=== PATIENT | female | born 1965 | race Caucasian/White ===

== ENCOUNTER 2020-07-01 11:16 | Outpatient (REF) | payer MEDICAID, SELFPAY ==
--- NOTE | ~2020-07-01 | US_ITS ---
EXAMINATION: PELVIC ULTRASOUND CLINICAL INFORMATION: Abnormal vaginal bleeding COMPARISON: None TECHNIQUE: Transabdominal and transvaginal pelvic ultrasound. Transvaginal exam was performed for better visualization of the uterus and ovaries. FINDINGS: The uterus is anteverted and measures 10.6 x 5 x 6.6 cm in dimension. No focal uterine lesion is seen. Endometrial thickness measures 7 mm. There is a small amount of fluid seen in the endometrial cavity. There are nabothian cysts in the cervix. The right ovary is normal-appearing and measures 0.8 x 1.6 x 1.4 cm. The left ovary measures 3.8 x 1.3 x 2.5 cm and contains a 1.4 x 1.2 x 1.7 cm simple cyst. There is no fluid in the pelvis. US/US transvaginal IMPRESSION: Endometrial thickness measures 7 mm which is slightly thickened in a postmenopausal patient and there is a small amount of fluid in the endometrial cavity. Small 1.4 x 1.2 x 1.7 cm simple left ovarian cyst.
--- NOTE | ~2020-07-01 | US_ITS ---
EXAMINATION: PELVIC ULTRASOUND CLINICAL INFORMATION: Abnormal vaginal bleeding COMPARISON: None TECHNIQUE: Transabdominal and transvaginal pelvic ultrasound. Transvaginal exam was performed for better visualization of the uterus and ovaries. FINDINGS: The uterus is anteverted and measures 10.6 x 5 x 6.6 cm in dimension. No focal uterine lesion is seen. Endometrial thickness measures 7 mm. There is a small amount of fluid seen in the endometrial cavity. There are nabothian cysts in the cervix. The right ovary is normal-appearing and measures 0.8 x 1.6 x 1.4 cm. The left ovary measures 3.8 x 1.3 x 2.5 cm and contains a 1.4 x 1.2 x 1.7 cm simple cyst. There is no fluid in the pelvis. US/US pelvic complete IMPRESSION: Endometrial thickness measures 7 mm which is slightly thickened in a postmenopausal patient and there is a small amount of fluid in the endometrial cavity. Small 1.4 x 1.2 x 1.7 cm simple left ovarian cyst.
== END 2020-07-01 11:17 | disposition home or self-care (01) ==
LOC: HO.US 11:16
PROVIDERS: PCP Internal Medicine; Visit Provider Internal Medicine
DX: N93.8 Other specified abnormal uterine and vaginal bleeding (principal)
CPT/HCPCS: 76830; 76856

== ENCOUNTER 2020-09-03 10:37 | Outpatient (REF) | payer MEDICAID, SELFPAY ==
--- NOTE | ~2020-09-03 | MM_ITS ---
EXAMINATION: MM SCREENING DIGITAL BREAST TOMOSYNTHESIS, BILATERAL CLINICAL INFORMATION: Screening. Asymptomatic. The lifetime risk of breast cancer based on the Tyrer-Cuzick Model is 6%. COMPARISON: Mammography: 09/21/2018, 09/11/2017, 05/09/2016 TECHNIQUE: Digital breast tomosynthesis is performed in both the craniocaudal and mediolateral oblique views along with computer-aided detection (CAD). Synthesized 2D images are generated from the tomosynthesis. Additional left MLO view is provided. FINDINGS: There are scattered areas of fibroglandular density (ACR BI-RADS breast composition Category b). There are no significant masses, abnormal calcifications, or other abnormalities. Parenchymal pattern is similar to prior studies. The skin contours are smooth. No significant changes. MM/MM tomosynthesis screening BI IMPRESSION: No mammographic evidence of malignancy. ASSESSMENT: BI-RADS 1: Negative RECOMMENDATION: Routine annual mammography screening. This patient's information was entered into a reminder system with a target due date for their next mammogram.
== END 2020-09-03 10:38 | disposition home or self-care (01) ==
LOC: HO.MAMMO 10:37
PROVIDERS: PCP Internal Medicine; Visit Provider Internal Medicine
DX: Z12.31 Encounter for screening mammogram for malignant neoplasm of breast (principal)
CPT/HCPCS: 77063; 77067

== ENCOUNTER 2020-10-05 14:15 | Emergency (ER) | payer MEDICAID, SELFPAY ==
--- NOTE | ~2020-10-05 | XR_ITS ---
EXAMINATION: PORTABLE CHEST 1 VIEW CLINICAL INFORMATION: Fever, chest pain, rule out pneumonia . COMPARISON: 10/14/2019. TECHNIQUE: Portable frontal view of the chest was obtained. FINDINGS: The lungs are hypoexpanded. Minimal increased basilar markings more likely reflect component of atelectasis with this degree of hypoexpansion. No superimposed focal infiltrate, effusion, edema, or pneumothorax. Cardiac and mediastinal silhouettes are within normal limits for technique. No acute bony abnormality seen. XR/XR chest 1V IMPRESSION: Hypoexpanded with basilar markings more likely due to atelectasis but no superimposed evidence of acute disease.
--- NOTE | ~2020-10-05 | CT_ITS ---
EXAMINATION: CT HEAD WITHOUT CONTRAST CLINICAL INFORMATION: New headaches. COMPARISON: MRI from 07/22/2015. TECHNIQUE: Contiguous axial imaging was performed from the skull base to vertex without intravenous administration of contrast. This CT examination was performed using dose optimization techniques as appropriate, variously including the following: *Automated exposure control *Adjustment of mA and/or kV according to patient size (this includes techniques or standardized protocols for targeted exams where dose is matched to indication/reason for exam; i.e. extremities or head) *Use of iterative reconstruction technique DLP: 807 mGy-cm FINDINGS: There is no evidence of acute intracranial hemorrhage or territorial infarction. No abnormal mass effect or midline shift is seen. Ramírez to white matter differentiation is well preserved. No extra-axial fluid collections are identified. The ventricles are normal in size. Nonspecific mild foci of low-density change noted in the cerebral white matter, likely corresponding to areas of T2 hyperintense signal change on the prior MRI exam. The osseous structures and soft tissues are normal. The mastoid air cells and visualized portions of the paranasal sinuses are well aerated. CT/CT head/brain wo con IMPRESSION: No acute intracranial hemorrhage or territorial infarction.
[2020-10-05 14:46] VITALS: BP 180/102; PULSE 96; RESP 18; TEMP 37.2; O2SAT 97; BMI 31.2
[2020-10-05 15:42] VITALS: BP 153/82; PULSE 93; RESP 18; TEMP 37; O2SAT 97
--- NOTE | 2020-10-05 16:51 | ED_ITS ---
HPI - General Adult General Chief complaint: General Medical Stated complaint: ear pain, fever, headache Time Seen by Provider: 10/05/20 15:47 Source: patient and other (Lala, patient's friend) Mode of arrival: ambulatory Limitations: no limitations History of Present Illness HPI narrative: 55-year-old female who presents emergency department for evaluation of headache, fever, your pain, nausea and weakness. Patient states she has been sick since Monday, 5 days prior to evaluation. The patient states that the headache came on gradually and is intermittent, she points to the front of her head when asked to localize the pain, she describes as a burning pain. She states that the pain is 5/10. She states that she has subjective fever and shaking chills x5 days. She has had associated nausea with no vomiting. She denies cough, chest pain, abdominal pain, shortness of breath, frequency, urgency, dysuria, diarrhea or rash. She has not had any recent tick bites. The patient had her 1st COVID-19 vaccination on 09/25/2020 (10 days prior to evaluation). Related Data Allergies Allergy/AdvReac Type Severity Reaction Status Date / Time No Known Allergies Allergy Verified 10/05/20 14:46 [No Known Allergies*] Review of Systems Review of Systems: Yes all other systems are reviewed and are negative [facility] Past Medical History [facility] Narrative: Past medical history significant for hyperlipidemia, coronary artery disease with OK in the past, stroke x9 according to the patient. She denies tobacco, alcohol and drug use. Medical History (Updated 10/05/20 @ 14:54 by Mihaela Dominguez) Stroke Social History Social History Alcohol intake: never Smoking Status: Never smoker Use of substances other than those prescribed or required for medical reasons: No Advance Directives: No Advance Directives Information Provided: Yes Physical Exam Vital Signs: Vital Signs: Last Vital Signs Temp 98.8 F 10/05/20 19:05 Pulse 102 H 10/05/20 19:05 Resp 18 10/05/20 19:05 BP 179/92 H 10/05/20 19:05 Pulse Ox 97 10/05/20 19:05 Body Mass Index 31.2 Const: General: cooperative Orientation/consciousness: oriented to person and oriented to place Limitations: no limitations HENMT: Head: Yes normal to inspection, Yes normocephalic, Yes atraumatic and Yes other (Tender right temporal region) Ears: external ears normal General nose exam: Normal external nose present Face and sinus: Yes normal facial exam Mouth: Normal oral and palatal mucosa present Throat: Yes posterior oropharynx normal Eyes: Periorbital: periorbital findings normal Eyelids: Yes eyelids normal Conjunctivae: conjunctivae normal Sclerae: sclerae normal Corneas: corneas normal Pupils: Equal, round and reactive pupils present Direct Ophthalmoscopy: normal light reflex Neck: Neck: Yes full ROM, Yes no lymphadenopathy, Yes no meningeal signs, Yes trachea midline and Yes supple Chest: Chest palpation & inspection: normal inspection of the chest and normal palpation of entire chest wall Resp: Effort & Inspection: normal respiratory effort and able to speak in complete sentences Auscultation: clear to auscultation bilaterally Cardio: Rate: regular rate Rhythm: regular rhythm Heart sounds: S1 normal heart sound present, S2 normal heart sound present and no murmurs GI: Inspection: Yes normal to inspection Palpation (GI): Soft to palpation, nontender, no guarding, not rigid and No hepatosplenomegaly present : General: Yes no CVA tenderness Back/Spine/Pelvis: Back: no CVA tenderness Cervical Spine: normal cervical lordosis Thoracic/Lumbar Spine: thoracic and lumbar spine normal to inspection Skin: Lesions: no lesions Rashes: no rashes Wounds: no wounds Neuro: General: oriented to person, oriented to place and no meningeal signs Cranial nerves: Yes CN's II-XII intact bilaterally and Yes Equal, round and reactive pupils present Cognition (Neuro): normal cognition Motor exam (neuro): 5/5 motor strength present throughout Extrem: General: Yes normal to inspection and Yes full ROM Psych: Appearance: well kempt Mental Status: mental status grossly normal Speech and movement: Normal speech and movement present Affect: normal affe ct Attitude: cooperative Thought process: Normal thought process present Thought content: Normal thought content present Course Course Course Narrative: 55-year-old female who presents emergency department for evaluation of fever, chills, headache, x5 days. Vital signs revealed a low- grade temperature of 99.0? orally, she was hypertensive with a blood pressure of 180/102, she had a normal respiratory rate, pulse and O2 saturation. The patient's examination did reveal right-sided temporal tenderness otherwise was unremarkable. I did order a CBC, CMP, sedimentation rate, COVID-19 test, chest x-ray and CT scan of the brain. She was ordered to get normal saline IV x1 L. her headache and nausea was treated with Reglan 10 mg IV, Benadryl 50 mg IV and Toradol 30 mg IV. 1924: The patient did get some improvement with the above medical treatment. The laboratory evaluation was unremarkable except for slight elevation of glucose of 130. The patient's COVID-19 test was negative. Patient's chest x-ray revealed no acute pneumonia, she may have atelectasis at the bases. I did discuss these findings with the patient. I did tell her it is possible that she may have a false negative COVID-19. The patient most likely has an acute viral syndrome and she was given verbal and printed instructions. She was advised to take ibuprofen and Tylenol for pain. She was advised to follow the COVID-19 instructions. Medical Decision Making Lab Data Result diagrams: 10/05/20 17:50 10/05/20 17:50 Labs: Lab Results 10/05/20 10/05/20 10/05/20 Range/Units 17:32 17:50 17:50 WBC 7.7 (4.8-10.8) X10*3/uL RBC 4.54 (4.20-5.50) X10*6/uL Hgb 13.4 (12.0-16.0) g/dl Hct 38.6 (37-47) % MCV 85.0 (80-98) fL MCH 29.5 (27.0-33.0) pg MCHC 34.7 (31.0-35.0) g/dl RDW 12.3 (11.0-16.0) % Plt Count 254 (160-400) X10*3/uL MPV 9.8 (9.4-12.3) fL Immature Gran % (Auto) 0.3 (0.0-0.4) % Neut % (Auto) 83.2 H (45-73) % Lymph % (Auto) 12.1 L (20-40) % [place] % (Auto) 3.9 (2-11) % Eos % (Auto) 0.1 (0-4) % Baso % (Auto) 0.4 (0-2) % Lymph # (Auto) 0.9 L (1.2-4.9) X10*3/uL [place] # (Auto) 0.3 (0.1-1.2) X10*3/uL Eos # (Auto) 0.0 (0.0-0.4) X10*3/uL Baso # (Auto) 0.0 (0.0-0.2) X10*3/uL Abs Immat Gran (auto) 0.02 (0.00-0.03) X10*3/uL Absolute Neuts (auto) 6.4 (2.0-8.3) X10*3/uL Absolute Nucleated RBC 0.000 (0.0-0.012) X10*3/uL Nucleated RBC % (auto) 0.0 (0.0-0.2) /100WBC ESR 7 (0-20) MM/HR PT (10.8-13.0) SEC INR (0.9-1.1) APTT (24.1-38.0) SEC Sodium (135-145) mmol/L Potassium (3.3-5.1) mmol/L Chloride (96-108) mmol/L Carbon Dioxide (22-29) mmol/L Anion Gap (12-20) BUN (9-16) mg/dL Creatinine (0.5-1.4) mg/dL Estim Creat Clear Calc Estimated GFR Random Glucose (60-115) mg/dL Lactic Acid (0.5-2.0) mmol/L Calcium (8.4-10.2) mg/dL Total Bilirubin (0.0-1.0) mg/dL AST (5-31) U/L ALT (0-31) U/L Alkaline Phosphatase (39-117) U/L Total Protein (6.5-8.0) g/dL Albumin (3.5-5.0) g/dL Lipase (8-78) U/L Urine Color YELLOW Urine Appearance CLEAR Urine pH 6.0 (5.0-8.0) Ur Specific [place] >= 1.030 H (1.005-1.025) Urine Protein NEG (NEG-TRACE) MG/DL Urine Glucose (UA) NEG (NEG) MG/DL Urine Ketones NEG (NEG) MG/DL Urine Blood NEG (NEG) Urine Nitrite NEG (NEG) Ur Leukocyte Esterase NEG (NEG) COVID-19 (SARITA) (Negative) COVID-19 Clin Com 10/05/20 10/05/20 10/05/20 Range/Units 17:50 17:50 17:50 WBC (4.8-10.8) X10*3/uL RBC (4.20-5.50) X10*6/uL Hgb (12.0-16.0) g/dl Hct (37-47) % MCV (80-98) fL MCH (27.0-33.0) pg MCHC (31.0-35.0) g/dl RDW (11.0-16.0) % Plt Count (160-400) X10*3/uL MPV (9.4-12.3) fL Immature Gran % (Auto) (0.0-0.4) % Neut % (Auto) (45-73) % Lymph % (Auto) (20-40) % [place] % (Auto) (2-11) % Eos % (Auto) (0-4) % Baso % (Auto) (0-2) % Lymph # (Auto) (1.2-4.9) X10*3/uL [place] # (Auto) (0.1-1.2) X10*3/uL Eos # (Auto) (0.0-0.4) X10*3/uL Baso # (Auto) (0.0-0.2) X10*3/uL Abs Immat Gran (auto) (0.00-0.03) X10*3/uL Absolute Neuts (auto) (2.0-8.3) X10*3/uL Absolute Nucleated RBC (0.0-0.012) X10*3/uL Nucleated RBC % (auto) (0.0-0.2) /100WBC ESR (0-20) MM/HR PT 12.6 (10.8-13.0) SEC INR 1.1 (0.9-1.1) APTT 26.9 (24.1-38.0) SEC Sodium 138 (135-145) mmol/L Potassium 4.0 (3.3-5.1) mmol/L Chloride 104 (96-108) mmol/L Carbon Dioxide 26 (22-29) mmol/L Anion Gap 12 (12-20) BUN 8 L (9-16) mg/dL Creatinine 0.71 (0.5-1.4) mg/dL Estim Creat Clear Calc 80.5 Estimated GFR > 60 Random Glucose 130 H (60-115) mg/dL Lactic Acid 1.6 (0.5-2.0) mmol/L Calcium 9.5 (8.4-10.2) mg/dL Total Bilirubin 0.5 (0.0-1.0) mg/dL AST 15 (5-31) U/L ALT 22 (0-31) U/L Alkaline Phosphatase 77 (39-117) U/L Total Protein 7.1 (6.5-8.0) g/dL Albumin 4.4 (3.5-5.0) g/dL Lipase (8-78) U/L Urine Color Urine Appearance Urine pH (5.0-8.0) Ur Specific [place] (1.005-1.025) Urine Protein (NEG-TRACE) MG/DL Urine Glucose (UA) (NEG) MG/DL Urine Ketones (NEG) MG/DL Urine Blood (NEG) Urine Nitrite (NEG) Ur Leukocyte Esterase (NEG) COVID-19 ([facility]ARITA) (Negative) COVID-19 Clin Com 10/05/20 10/05/20 Range/Units 17:50 17:52 WBC (4.8-10.8) X10*3/uL RBC (4.20-5.50) X10*6/uL Hgb (12.0-16.0) g/dl Hct (37-47) % MCV (80-98) fL MCH (27.0-33.0) pg MCHC (31.0-35.0) g/dl RDW (11.0-16.0) % Plt Count (160-400) X10*3/uL MPV (9.4-12.3) fL Immature Gran % (Auto) (0.0-0.4) % Neut % (Auto) (45-73) % Lymph % (Auto) (20-40) % [place] % (Auto) (2-11) % Eos % (Auto) (0-4) % Baso % (Auto) (0-2) % Lymph # (Auto) (1.2-4.9) X10*3/uL [place] # (Auto) (0.1-1.2) X10*3/uL Eos # (Auto) (0.0-0.4) X10*3/uL Baso # (Auto) (0.0-0.2) X10*3/uL Abs Immat Gran (auto) (0.00-0.03) X10*3/uL Absolute Neuts (auto) (2.0-8.3) X10*3/uL Absolute Nucleated RBC (0.0-0.012) X10*3/uL Nucleated RBC % (auto) (0.0-0.2) /100WBC ESR (0-20) MM/HR PT (10.8-13.0) SEC INR (0.9-1.1) APTT (24.1-38.0) SEC Sodium (135-145) mmol/L Potassium (3.3-5.1) mmol/L Chloride (96-108) mmol/L Carbon Dioxide (22-29) mmol/L Anion Gap (12-20) BUN (9-16) mg/dL Creatinine (0.5-1.4) mg/dL Estim Creat Clear Calc Estimated GFR Random Glucose (60-115) mg/dL Lactic Acid (0.5-2.0) mmol/L Calcium (8.4-10.2) mg/dL Total Bilirubin (0.0-1.0) mg/dL AST (5-31) U/L ALT (0-31) U/L Alkaline Phosphatase (39-117) U/L Total Protein (6.5-8.0) g/dL Albumin (3.5-5.0) g/dL Lipase 20 (8-78) U/L Urine Color Urine Appearance Urine pH (5.0-8.0) Ur Specific [place] (1.005-1.025) Urine Protein (NEG-TRACE) MG/DL Urine Glucose (UA) (NEG) MG/DL Urine Ketones (NEG) MG/DL Urine Blood (NEG) Urine Nitrite (NEG) Ur Leukocyte Esterase (NEG) COVID-19 (SARIAT) Negative (Negative) COVID-19 Clin Com See Note
[2020-10-05 18:00] VITALS: BP 179/89; PULSE 103; RESP 18; O2SAT 97
[2020-10-05 18:00] LABS: MANUAL DIFF FLAG NO
[2020-10-05] MEDS: 0.9 % Sodium Chloride 1,000 ML 999 ML IV (18:01)
[2020-10-05] MEDS: diphenhydrAMINE HCL 50 MG/ML VIAL IVPUSH (18:01)
[2020-10-05 18:02] LABS: Basophils Percent Auto 0.4 % (0-2); Eosinophils Percent Auto 0.1 % (0-4); Hematocrit 38.6 % (37-47); Hemoglobin 13.4 g/dl (12.0-16.0); Imm Gran Abs Auto 0.02 X10*3/uL (0.00-0.03); Imm Gran Pct Auto 0.3 % (0.0-0.4); Lymphocytes Absolute Auto 0.9 X10*3/uL (1.2-4.9); Lymphocytes Percent Auto 12.1 % (20-40); Mean Corpuscular HGB Conc 34.7 g/dl (31.0-35.0); Mean Corpuscular Hemoglobin 29.5 pg (27.0-33.0); Mean Platelet Volume 9.8 fL (9.4-12.3); Monocytes Absolute Auto 0.3 X10*3/uL (0.1-1.2); Monocytes Percent Auto 3.9 % (2-11); Neutrophils Absolute Auto 6.4 X10*3/uL (2.0-8.3); Neutrophils Percent Auto 83.2 % (45-73); Platelet Count 254 X10*3/uL (160-400); Red Blood Count 4.54 X10*6/uL (4.20-5.50); Red Cell Distribution Width 12.3 % (11.0-16.0); White Blood Count 7.7 X10*3/uL (4.8-10.8)
[2020-10-05] MEDS: Metoclopramide HCl 10 MG/2 ML VIAL IVPUSH (18:03)
[2020-10-05] MEDS: Ketorolac Tromethamine 30 MG/ML VIAL IVPUSH (18:05)
--- NOTE | 2020-10-05 18:05 | PC.NURSE ---
Pt medicated for headache. IVF running. Labd obtained. 22 to right wrist
[2020-10-05 18:07] LABS: Glucose Urine UA NEG (NEG); Leukocyte Esterase Urine NEG (NEG); Nitrite Urine NEG (NEG); Specific Gravity - Urine >= 1.030 (1.005-1.025); Urine Blood NEG (NEG); Urine Ketones NEG (NEG); Urine Protein NEG (NEG-TRACE)
[2020-10-05 18:10] LABS: INTERNATIONAL NORM RATIO 1.1 (0.9-1.1); Prothrombin Time 12.6 SEC (10.8-13.0)
[2020-10-05 18:13] LABS: Partial Thromboplastin Time 26.9 SEC (24.1-38.0)
[2020-10-05 18:17] LABS: COVID-19 Test Negative (Negative)
[2020-10-05 18:17] LABS: Appearance Urine CLEAR; Color Urine YELLOW
[2020-10-05 18:33] LABS: Lactic Acid 1.6 mmol/L (0.5-2.0)
[2020-10-05 18:37] LABS: Lipase 20 U/L (8-78)
[2020-10-05 18:38] LABS: Alanine Aminotransferase 22 U/L (0-31); Albumin Level 4.4 g/dL (3.5-5.0); Alkaline Phosphatase 77 U/L (39-117); Anion Gap 12 (12-20); Aspartate Amino Transferase 15 U/L (5-31); Bilirubin Total 0.5 mg/dL (0.0-1.0); Blood Urea Nitrogen 8 mg/dL (9-16); Calcium 9.5 mg/dL (8.4-10.2); Carbon Dioxide 26 mmol/L (22-29); Chloride 104 mmol/L (96-108); Creatinine Clr Calc Pharmacy 80.5; Estimated Glomerular Filt Rate > 60; Glucose Random 130 mg/dL (60-115); Sodium 138 mmol/L (135-145); Total Protein 7.1 g/dL (6.5-8.0)
[2020-10-05 18:45] LABS: Erythrocyte Sedimentation Rate 7 MM/HR (0-20)
[2020-10-05 19:05] VITALS: BP 179/92; PULSE 102; RESP 18; TEMP 37.1; O2SAT 97
== END 2020-10-05 20:06 | disposition home or self-care (01) ==
PROVIDERS: Emergency Provider Emergency Medicine Emergency Medical Services; PCP Internal Medicine
DX: B34.9 Viral infection, unspecified (principal); Z20.822 Contact with and (suspected) exposure to COVID-19; R51.9 Headache, unspecified; R50.9 Fever, unspecified; I10 Essential (primary) hypertension; E78.5 Hyperlipidemia, unspecified; I25.2 Old myocardial infarction; Z86.73 Personal history of transient ischemic attack (TIA), and cerebral infarction without residual deficits
CPT/HCPCS: 36415; 70450; 71045; 80053; 81003; 83605; 83690; 85025; 85610; 85652; 85730; 87040; 87635; 96361; 96374; 96375; 99284; J1200; J1885; J2765

== ENCOUNTER 2021-05-10 11:48 | Outpatient (REF) | payer MEDICAID, SELFPAY | END 2021-05-10 11:49 | disposition home or self-care (01) | LOC: HO.LAB 11:48 | PROVIDERS: Visit Provider Internal Medicine | DX: Z20.822 Contact with and (suspected) exposure to COVID-19 (principal) | CPT/HCPCS: C9803; U0003; U0005 ==

== ENCOUNTER 2021-09-08 13:31 | Outpatient (REF) | payer MEDICAID, SELFPAY ==
--- NOTE | ~2021-09-08 | MM_ITS ---
EXAMINATION: MM SCREENING DIGITAL BREAST TOMOSYNTHESIS, BILATERAL CLINICAL INFORMATION: Screening. Asymptomatic. The lifetime risk of breast cancer based on the Tyrer-Cuzick Model is 6%. COMPARISON: Mammography: 09/03/2020, 09/21/2018, 09/11/2017 TECHNIQUE: Digital breast tomosynthesis is performed in both the craniocaudal and mediolateral oblique views along with computer-aided detection (CAD). Synthesized 2D images are generated from the tomosynthesis. FINDINGS: There are scattered areas of fibroglandular density (ACR BI-RADS breast composition Category b). There are no significant masses, abnormal calcifications, or other abnormalities. No developing density or architectural abnormality. No significant changes from prior studies. MM/MM tomosynthesis screening BI IMPRESSION: No mammographic evidence of malignancy. ASSESSMENT: BI-RADS 1: Negative RECOMMENDATION: Routine annual mammography screening. This patient's information was entered into a reminder system with a target due date for their next mammogram.
== END 2021-09-08 13:32 | disposition home or self-care (01) ==
LOC: HO.MAMMO 13:31
PROVIDERS: PCP Internal Medicine; Visit Provider Internal Medicine
DX: Z12.31 Encounter for screening mammogram for malignant neoplasm of breast (principal)
CPT/HCPCS: 77063; 77067

== ENCOUNTER 2022-09-14 13:06 | Outpatient (REF) | payer MEDICAID, SELFPAY ==
--- NOTE | ~2022-09-14 | MM_ITS ---
EXAMINATION: MM SCREENING DIGITAL BREAST TOMOSYNTHESIS, BILATERAL CLINICAL INFORMATION: Screening. Asymptomatic. The lifetime risk of breast cancer based on the Tyrer-Cuzick Model is 6.4%. COMPARISON: Mammography: September 08, 2021 and studies dating back to April 15, 2015 TECHNIQUE: Digital breast tomosynthesis is performed in both the craniocaudal and mediolateral oblique views along with computer-aided detection (CAD). Synthesized 2D images are generated from the tomosynthesis. FINDINGS: There are scattered areas of fibroglandular density (ACR BI-RADS breast composition Category b). There are no significant masses, abnormal calcifications, or other abnormalities. MM/MM tomosynthesis screening BI IMPRESSION: No significant changes ASSESSMENT: BI-RADS 1: Negative RECOMMENDATION: Routine annual mammography screening. This patient's information was entered into a reminder system with a target due date for their next mammogram.
== END 2022-09-14 13:07 | disposition home or self-care (01) ==
LOC: HO.MAMMO 13:06
PROVIDERS: PCP Internal Medicine; Visit Provider Internal Medicine
DX: Z12.31 Encounter for screening mammogram for malignant neoplasm of breast (principal)
CPT/HCPCS: 77063; 77067

== ENCOUNTER 2022-11-29 08:58 | Outpatient (REF) | payer MEDICAID, SELFPAY ==
[2022-11-29 11:12] LABS: MANUAL DIFF FLAG NO
[2022-11-29 11:36] LABS: Basophils Percent Auto 0.9 % (0-2); Eosinophils Absolute Auto 0.1 X10*3/uL (0.0-0.4); Eosinophils Percent Auto 2.4 % (0-4); Hematocrit 40.9 % (37.0-47.0); Imm Gran Abs Auto 0.01 X10*3/uL (0.00-0.03); Imm Gran Pct Auto 0.2 % (0.0-0.4); Lymphocytes Absolute Auto 1.2 X10*3/uL (1.2-4.9); Lymphocytes Percent Auto 26.3 % (20-40); Mean Corpuscular HGB Conc 34.2 g/dl (31.0-35.0); Mean Corpuscular Hemoglobin 28.6 pg (27.0-33.0); Mean Corpuscular Volume 83.6 fL (80.0-98.0); Mean Platelet Volume 10.3 fL (9.4-12.3); Monocytes Absolute Auto 0.3 X10*3/uL (0.1-1.2); Monocytes Percent Auto 6.4 % (2-11); Neutrophils Percent Auto 63.8 % (45-73); Platelet Count 296 X10*3/uL (160-400); Red Blood Count 4.89 X10*6/uL (4.20-5.50); Red Cell Distribution Width 12.5 % (11.0-16.0); White Blood Count 4.7 X10*3/uL (4.8-10.8)
[2022-11-29 11:43] LABS: Estimated Average Glucose 117 mg/dL; Hemoglobin A1c % 5.7 %
[2022-11-29 11:57] LABS: Alanine Aminotransferase 18 U/L (0-31); Albumin Level 4.4 g/dL (3.5-5.0); Alkaline Phosphatase 101 U/L (39-117); Anion Gap 15 (12-20); Aspartate Amino Transferase 18 U/L (5-31); Bilirubin Direct 0.2 mg/dL (0.0-0.5); Bilirubin Total 0.6 mg/dL (0.0-1.0); Blood Urea Nitrogen 10 mg/dL (9-16); Calcium 10.2 mg/dL (8.4-10.2); Carbon Dioxide 25 mmol/L (22-29); Chloride 104 mmol/L (96-108); Cholesterol 197 mg/dL; Estimated Glomerular Filt Rate > 60; Glucose Random 105 mg/dL (60-115); HDL Cholesterol 49 mg/dL; LDL Cholesterol Calculated 125 mg/dl; Potassium 3.9 mmol/L (3.3-5.1); Sodium 140 mmol/L (135-145); Total Protein 7.4 g/dL (6.5-8.0); Triglycerides 116 mg/dL
[2022-11-29 12:14] LABS: Vitamin D 25-OH Total 51.2 ng/mL (>30)
== END 2022-11-29 08:59 | disposition home or self-care (01) ==
LOC: HO.HHCL 08:58
PROVIDERS: Visit Provider Internal Medicine
DX: Z00.00 Encounter for general adult medical examination without abnormal findings (principal)
CPT/HCPCS: 36415; 80048; 80061; 80076; 82306; 83036; 85025

== ENCOUNTER 2023-09-20 10:06 | Outpatient (REF) | payer MEDICAID, SELFPAY ==
--- NOTE | ~2023-09-20 | MM_ITS ---
EXAMINATION: MM SCREENING DIGITAL BREAST TOMOSYNTHESIS, BILATERAL CLINICAL INFORMATION: Screening. Asymptomatic. COMPARISON: Mammography: 09/14/2022, 09/08/2021, 09/03/2020, 09/21/2018, 09/11/2017 TECHNIQUE: Digital breast tomosynthesis is performed in both the craniocaudal and mediolateral oblique views along with computer-aided detection (CAD). Synthesized 2D images are generated from the tomosynthesis. FINDINGS: There are scattered areas of fibroglandular density (ACR BI-RADS breast composition Category b). Intramammary node again noted upper outer right breast middle one third. There are a few benign calcifications scattered posterior medial breast. There are no suspicious masses, suspicious grouped calcifications, or areas of architectural distortion in either breast. The parenchymal pattern is stable from prior exams. No skin or axillary abnormalities. MM/MM tomosynthesis screening BI IMPRESSION: No mammographic evidence of malignancy. No significant change. ASSESSMENT: BI-RADS BI-RADS 2 - Benign Findings RECOMMENDATION: Routine annual mammography screening. 1 year F/U This examination should not preclude the clinical evaluation of a suspicious palpable abnormality. This patient's information was entered into a reminder system with a target due date for their next mammogram.
== END 2023-09-20 10:07 | disposition home or self-care (01) ==
LOC: HO.MAMMO 10:06
PROVIDERS: PCP Internal Medicine; Visit Provider Internal Medicine
DX: Z12.31 Encounter for screening mammogram for malignant neoplasm of breast (principal)
CPT/HCPCS: 77063; 77067

== ENCOUNTER → 2023-09-20 10:15 | Outpatient (BNV) | payer MEDICAID, SELFPAY | PROVIDERS: PCP Internal Medicine; Visit Provider Radiology Diagnostic Radiology | DX: Z12.31 Encounter for screening mammogram for malignant neoplasm of breast (principal) | CPT/HCPCS: 77063; 77067 ==

== ENCOUNTER 2024-02-15 09:04 | Outpatient (REF) | payer MEDICAID, SELFPAY ==
[2024-02-15 11:59] LABS: Basophils Percent Auto 0.6 % (0-2); Eosinophils Absolute Auto 0.1 X10*3/uL (0.0-0.4); Hematocrit 40.7 % (37.0-47.0); Hemoglobin 13.9 g/dl (12.0-16.0); Imm Gran Abs Auto 0.01 X10*3/uL (0.00-0.03); Imm Gran Pct Auto 0.2 % (0.0-0.4); Lymphocytes Absolute Auto 0.9 X10*3/uL (1.2-4.9); MANUAL DIFF FLAG NO; Mean Corpuscular HGB Conc 34.2 g/dl (31.0-35.0); Mean Corpuscular Hemoglobin 28.6 pg (27.0-33.0); Mean Corpuscular Volume 83.7 fL (80.0-98.0); Monocytes Absolute Auto 0.4 X10*3/uL (0.1-1.2); Monocytes Percent Auto 7.9 % (2-11); Neutrophils Absolute Auto 3.5 x10*3/uL (2.0-8.3); Neutrophils Percent Auto 72.3 % (45-73); Platelet Count 269 X10*3/uL (160-400); Red Blood Count 4.86 X10*6/uL (4.20-5.50); Red Cell Distribution Width 12.4 % (11.0-16.0); White Blood Count 4.8 X10*3/uL (4.8-10.8)
[2024-02-15 12:13] LABS: Estimated Average Glucose 114 mg/dL; Hemoglobin A1C 130.6143 umol/L; Hemoglobin A1c % 5.6 % (<6.0)
[2024-02-15 12:32] LABS: Alanine Aminotransferase 19 U/L (0-31); Albumin Level 4.4 g/dL (3.5-5.0); Alkaline Phosphatase 105 U/L (39-117); Anion Gap 13 (12-20); Aspartate Amino Transferase 20 U/L (5-31); Bilirubin Total 0.5 mg/dL (0.0-1.0); Blood Urea Nitrogen 9 mg/dL (9-16); Calcium 9.9 mg/dL (8.4-10.2); Carbon Dioxide 23 mmol/L (22-29); Chloride 107 mmol/L (96-108); Cholesterol 218 mg/dL (<200); Estimated Glomerular Filt Rate > 60; Glucose Random 107 mg/dL (60-115); HDL Cholesterol 47 mg/dL (>40); LDL Cholesterol Calculated 144 mg/dL (<100); Potassium 3.9 mmol/L (3.3-5.1); Sodium 139 mmol/L (135-145); Total Protein 7.4 g/dL (6.5-8.0); Triglycerides 136 mg/dL (<150)
[2024-02-15 12:34] LABS: HIV AB/AG Nonreactive (Nonreactive); HIV Num 1 0.04 S/CO (0.00-0.99)
[2024-02-15 12:35] LABS: Vitamin D 25-OH Total 47.1 ng/mL (>30)
[2024-02-15 13:34] LABS: Reflex LDLD? No
[2024-02-16 14:48] LABS: HCV Log PCR <1.18 NOT DETECTED Log IU/mL (NOT DETECTED); HepC Viral Load <15 NOT DETECTED IU/mL (NOT DETECTED)
== END 2024-02-15 09:05 | disposition home or self-care (01) ==
LOC: HO.HHCL 09:04
PROVIDERS: Visit Provider Internal Medicine
DX: Z00.00 Encounter for general adult medical examination without abnormal findings (principal)
CPT/HCPCS: 36415; 80053; 80061; 82306; 83036; 85025; 87389; 87522

== ENCOUNTER 2024-09-17 16:25 | Outpatient (REF) | payer MEDICAID, SELFPAY ==
--- OUTSIDE RECORDS SUMMARY | 2024-09-17 18:31 | XMS_ITS | Encounter Summary ---
Author Organization [employer] Address [address] [facility] [address] [place] [address] Care Team Providers Care Driver'S License Examiner Name Role Phone Trisha Berg MD Primary Care Provide r Reason for Visit * Reason Comments Gynecologic Exam Encounter Details Date Type Department Care Team (Latest Contact Info) Description 09/17/2024 9:30 AM EDT Procedure Visit [facility] [address] [place], [place] [phone] Radha Villanueva, BLANK [address] [place], [place] [phone] Cervical cancer screening (Primary Dx) Social History Tobacco Use Types Packs/Day Years Used Date Smoking Tobacco: Never Passive Smoke Exposure: Never Smokeless Tobacco: Never Alcohol Use Standard Drinks/Week Comments Never 0 (1 standard drink = 0.6 oz pur e alcohol) Depression Answer Date Recorded Patient Health Questionnaire-9 Score 8 02/14/2024 Patient Health Questionnaire-9 Score 8 02/14/2024 Last PHQ-9: Questionnaire Data Not on file 0 02/14/2024 Housing Stability Answer Date Recorded What is your housing situation today? I have kavon higuera 03/06/[address] you li ve. Do you have problems with any of the following? None of the above 03/06/2023 Food Insecurity Answer Date Recorded Within the past 12 months, y ou worried that your food would run out before you got money to buy more: Never True 03/06/2023 Within the past 12 months,th e food you bought just didn't last and you didn't have enough money to get more: Never True Transportation Answer Date Recorded In the past 12 months, has l ack of transportation kept you from medical appts, meetings, work or from getting things needed for daily living? No 08/05/2024 Utilities Answer Date Recorded In the past 12 months, has t he electric, gas, oil or water company threatened to shut off services in your home? No 08/05/2024 Depression Answer Date Recorded Patient Health Questionnaire-2 Score 6 02/14/2024 Internet Access Answer Date Recorded Internet Access Q1 Yes 01/22/2024 Internet Access Q2 Not on file 01/22/2024 Comments No Sex and Gender Information Value Date Recorded Sex Assigned at Female 03/21/2022 10:15 AM EDT Legal Sex Female 10:15 AM EDT Gender Identity Female 03/21/2022 10:15 AM EDT Sexual Orientation Choose not to disclose 2021 10:15 AM EDT documented as of this encounter Last Filed Vital Signs Vital Sign Reading Time Taken Comments Blood Pressure 154/85 09/17/2024 9:43 AM EDT Pulse 76 09/17/2024 9:43 AM EDT Temperature 36.4 ??C (97.5 ??F) 09/17/2024 9:43 AM ED T Respiratory Rate 16 09/17/2024 9:43 AM EDT Oxygen Saturation 99% 09/17/2024 9:43 AM EDT Inhaled Oxygen Concentration - - Weight 68 kg (150 lb) 09/17/2024 9:43 AM EDT Height 152.4 cm (5') 09/17/2024 9:43 AM EDT Body Mass Index 29.29 09/17/2024 9:43 AM EDT documented in this encounter Progress Notes * Radha Villanueva CNM - 09/17/2024 9:30 AM EDT Subjective Patient ID: Arely Aguirre is a 59 y.o. female who presents for [employer] visit Mammogram BIRADS 2, cat b 09/2023. Mammogram ordered for this year. [facility] partner, no safety concerns. Vasomotor symptoms manageable. No personal fracture. Menopausal at 55, no bleeding since then. Pap 2019, HPV neg, unable to see cytology results. No prior abnormals. Pelvic exam by AUDRA Burk, under my supervision. Review of Systems Genitourinary: Negative for dyspareunia, dysuria, frequency, genital sores, hematuria, menstrual problem, pelvic pain, urgency, vaginal bleeding, vaginal discharge and vaginal pain. No abnormal pap, no abnormal bleeding, no breast pain, no breast mass, no nipple discharge Objective BP (!) 154/85 (BP Location: Left arm, Patient Position: Sitting, BP Cuff Size: Adult) Pulse 76 Temp 97.5 ??F (36.4 ??C) (Temporal) Resp 16 Ht 5' (1.524 m) Wt 150 lb (68 kg) SpO2 99% BMI29.29 kg/m?? Physical Exam Exam conducted with a boiling house oiler present (Radha Villanueva CNM). Constitutional: Appearance: Normal appearance. Genitourinary: General: Normal vulva. Labia: Right: No rash, tenderness, lesion or injury. Left: No rash, tenderness, lesion or injury. Vagina: Normal. No signs of injury and foreign body. No vaginal discharge, erythema, tenderness, bleeding or lesions. Cervix: No cervical motion tenderness, discharge, friability, lesion, erythema, cervical bleeding or eversion. Uterus: Normal. Not enlarged and not tender. Adnexa: Right adnexa normal and left adnexa normal. Right: No mass, tenderness or fullness. Left: No mass, tenderness or fullness. Comments: Ovaries non palpable bilaterally. Poor tone, no prolapse. Episiotomy scar on right Neurological: Mental Status: She is alert. Psychiatric: Mood and Affect: Mood normal. Behavior: Behavior normal. Assessment/Plan Diagnoses and all orders for this visit: Cervical cancer screening - Pap Smear Pap 3 years/co-test 5 years. Routine mammography. Report bleeding. Bone density at 65, sooner if new risk factors documented in this encounter Plan of Treatment Upcoming Encounters Date Type Department Care Team (Late st Contact Info) Description 11/11/2024 11:00 AM EDT Office Visit [facility] [address] [place], [place] [phone] Trisha Berg MD [address] [place] [address] Scheduled Orders Name Type Priority Associated Diagnoses Orde r Schedule Pap Smear Pathology and Cytology Routine Cervical cancer screening Ordered: 09/17/2024 documented as of this encounter Visit Diagnoses Diagnosis Cervical cancer screening- Primary Screening for malignant neoplasm of the cervix documented in this encounter Additional Health Concerns Assessment Noted Time PHQ-9 Depression Total Score: 8 02/14/20 24 10:56 AM EDT documented as of this encounter Care Teams Driver'S License Examiner Relationship Specialty Start Date End Date Trisha Berg MD [address] [place] [id number] PCP - General Family Medicine 02/07/18 documented as of this encounter
--- OUTSIDE RECORDS SUMMARY | 2024-09-17 18:31 | XMS_ITS | Encounter Summary ---
Author Organization [employer] Address [address] [place] [address] Care Team Providers Care Pet Adoption Counselor Name Role Phone Trisha Berg MD Primary Care Provide r Encounter Details Date Type Department Care Team (Latest Contact Info) Description 09/17/2024 Travel Social History Tobacco Use Types Packs/Day Years [...] AM EDT documented as of this encounter Plan of Treatment Upcoming Encounters Date Type Department Care Team (Late st Contact Info) Description 11/11/2024 11:00 AM EDT Office Visit [facility] [address] [place] [address] Trisha Berg MD [address] [place] [address] documented as of this encounter Visit Diagnoses Not on filedocumented in this encounter Additional Health Concerns Assessment Noted Time PHQ-9 Depression Total Score: 8 02/14/20 24 10:56 AM EDT documented as of this encounter Care Teams Pet Adoption Counselor Relationship Specialty Start Date End Date Trisha Begr MD [address] [place] [phone] PCP - General Family Medicine 02/07/18 documented as of this encounter
--- OUTSIDE RECORDS SUMMARY | 2024-09-17 18:31 | XMS_ITS | Encounter Summary ---
Author Organization [employer] Address [address] [facility] [address] [place] [address] Care Team Providers Care Visual C Developer Name Role Phone Trisha Berg MD Primary Care Provide r Encounter Details Date Type Department Care Team (Late Contact Info) Description 09/09/2022 Abstract [facility] [address] [place] [address] Jade, Autumn [address] [place] [address] Social History Tobacco Use Types Packs/Day Years Used Date Smoking Tobacco: Never Smokeless Tobacco: Never Alcohol Use Standard Drinks/Week Comments Never 0 (1 standard drink = 0.6 oz pur e alcohol) Comments Unknown Sex and Gender Information Value Date Recorded Sex Assigned at Female 03/21/2022 10:15 AM EDT Legal Sex Female 10:15 AM EDT Gender Identity Female 03/21/2022 10:15 AM EDT Sexual Orientation Choose not to disclose 2021 10:15 AM EDT COVID-19 Exposure Response Date Recorded In the last 10 days, have yo u been in contact with someone who was confirmed or suspected to have Coronavirus/COVID-19? No / Unsure 08/31/2022 9:52 AM EDT documented as of this encounter Plan of Treatment Upcoming Encounters Date Type Department Care Team (Late st Contact Info) Description 11/11/2024 11:00 AM EDT Office Visit [facility] [address] [place] [address] Trisha Berg MD [address] [place] [address] documented as of this encounter Visit Diagnoses Not on filedocumented in this encounter Care Teams Visual C Developer Relationship Specialty Start Date End Date Trisha Berg MD [address] [place] [id number] PCP - General Family Medicine 02/07/18 documented as of this encounter
--- OUTSIDE RECORDS SUMMARY | 2024-09-17 18:31 | XMS_ITS | Clinical Summary ---
Author Organization [employer] Address [address] [facility] 7[address] [place] [address] Care Team Providers Care Crew Car Driver Name Role Phone Trisha Berg MD Primary Care Provide r Allergies No known active allergies Medications gabapentin (Neurontin) 100 MG capsule Take by mouth. Active zoster vaccine-recomb inant adjuvanted (Shingrix) 50 MCG/0.5ML vaccine Inject 0.5 mL into the shoulder, thigh, or buttocks. 07/27/19 22 Active naproxen (Naprosyn) 500 MG tablet Take 1 tablet by mouth every 12 (twelve) hours. 11/18/19 20 Active naloxone (Narcan) 4 mg/0.1 mL nasal spray Administer 0.1 mL into affected nostril(s). 12/14/19 22 Active fluticasone (Flonase) 50 MCG/ACT nasal spray Administer 2 sprays into affected nostril(s) at bed time. 11/18/19 20 Active Arnica liquid cream, ointment or lotion, any strength, for topical application twice daily as needed for muscle pain 12/31/19 17 Active gabapentin (Neurontin) 300 MG capsule Take 300 mg by mouth 3 times daily. 09/28/19 23 Active venlafaxine XR (Effexor XR) 37.5 MG 24 hr capsuleIndicat ions:Hot flashes due to menopause Take 1 capsule (37.5 mg) by mouth in the morning. Do not crush or chew. 30 capsule 11/22/19 23 Active Blood Pressure Monitor kitIndications :Temporary high blood pressure Use as directed 3x/week 1 kit 11/22/19 23 Active meclizine (Antivert) 25 MG tablet Take 1 tablet (25 mg) by mouth at bedtime. As needed for dizziness 30 tablet 11 03/28/20 23 Active omeprazole (PriLOSEC) [address] capsuleIndicat ions:Gastroeso phageal reflux disease without esophagitis Take 1 capsule (20 mg) by mouth before breakfast. Do not crush or chew. 30 capsule 11 02/14/20 24 025 Active albuterol (Ventolin HFA) 108 (90 Base) MCG/ACT inhaler INHALE 2 PUFFS BY MOUTH EVERY 4 HOURS NEEDED FOR WHEEZING OR SHORTNESS OF BREATH 18 g 3 02/26/20 24 Active Aspirin Low Dose 81 MG EC tablet TAKE 1 TABLET BY MOUTH EVERY DAY 90 tablet 1 03/11/20 24 Active atorvastatin (Lipitor) 10 MG tablet TAKE 1 TABLET BY MOUTH EVERY DAY IN THE MORNING 90 tablet 1 04/16/20 24 Active lisinopril 20 MG tablet Take 1 tablet (20 mg) by mouth Once per day. 90 tablet 3 09/12/19 25 026 Active lisinopril 10 MG tablet Take 1 tablet (10 mg) by mouth Once per day. 90 tablet 3 08/29/19 25 025 Discontinued(R eorder (will not trigger notification to Pharmacy)) Active Problems Problem Noted Date Diagnosed Date Encounter for screening mamm ogram for malignant neoplasm of breast 08/13/2024 Encounter for preventive health examination 01/21 Assessment & Plan (02/20/2024 1:15 PM EDT): See HPI Chronic back pain 11/21/2022 Flushing 11/21/2022 Encounter for preventative adult health care exa mination 11/21/2022 Assessment & Plan (11/21/2022 10:07 AM EDT): Please see HPI Stress incontinence of urine 11/21/2022 Assessment & Plan (08/13/2024 1:35 PM EDT): Prescription for pads will be generated Assessment & Plan (11/21/2022 10:06 AM EDT): Urine pads will be prescribed Hot flashes due to menopause 11/21/2022 Assessment & Plan (12/22/2022 10:46 AM EDT): Continue with venlafaxine 37.5mg daily Assessment & Plan (11/21/2022 10:07 AM EDT): RTC 4 weeks Temporary high blood pressure 11/21/2022 Assessment & Plan (08/13/2024 1:35 PM EDT): Today blood pressure is elevated, I advised low-sodium diet and weight reduction I instructed patient to monitor her blood pressure at home and bring log for next appointment with nurse plan is if blood pressure is out of goal meaning more than 140/90 persistently I will start her on lisinopril 10 mg daily then follow-up again with nurse in 2 weeks Assessment & Plan (12/22/2022 10:45 AM EDT): Continue to monitor BP at home reports back if BP readings are above 140/90s Assessment & Plan (11/21/2022 10:06 AM EDT): I advise low Na diet and weight reduction BP kit prescribed if BP is high on next appointment initiation of treatment RTC 4 weeks Periodontal disease 10/25/2022 Dental calculus 10/25/2022 Cerebrovascular accident 09/27/2016 Cleft palate 09/27/2016 Disturbance in speech 09/27/2016 Dizziness 09/27/2016 Gastroesophageal reflux disease without esophagi tis 09/27/2016 Assessment & Plan (02/20/2024 1:14 PM EDT): I advise patient to avoid NSAIDs, spicy and acid food, I advise to eat at the same time every day, I advise to elevate the head of the bed and take medications as prescribe 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 [address] [place] [address] Radha Villanueva CNM Cervical cancer screening (Primary Dx) 09/17/2024 Travel 09/11/2024 11:30 AM EDT Clinical Support [facility] [address] [place] [address], MICHAEL Temporary high blood pressure [R03.0] 09/11/2024 Refill [facility] [address] [place] [address] Trisha Berg MD 09/11/2024 Travel 08/30/2024 9:45 AM EDT Office Visit [facility] OPTOMETRY [address] [place] [phone] Oracio, Sharita, OD Presbyopia (Primary Dx) 08/28/2024 9:30 AM EDT Clinical Support [address] [address] Dianelys Tucker, MICHAEL Temporary high blood pressure 08/28/[address] [address] Trisha Berg MD Care Coordination; Appointment Request 08/28/[address] [address] Trisha Berg MD 08/28/2024 Travel 08/14/[address] [facility] [address] [place] [phone] Trisha Berg MD MAMMO ORDER 08/13/2024 9:00 AM EDT Office Visit [address] [address] Trisha Berg MD Encounter for screening mammogram for malignant neoplasm of breast (Primary Dx); Stress incontinence of urine; 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); Cleft palate; Temporary high blood pressure; Dietary counseling; Exercise counseling 08/13/2024 Travel 08/12/[address] [facility] [address] [place] [address] Trisha Berg MD Chart Prep 08/05/[address] [facility] [address], [place] [phone] Trisha Berg MD Pre-visit Planning (SDOH screening negative and tobacco screening negative) 08/02/2024 Population Health Risk Score [facility] () Department [address] [phone] Provider, Population Health Generic 07/26/2024 10:30 AM EST Office Visit [facility] OPTOMETRY [address] [place] [address] Helga Petit, OD Presbyopia (Primary Dx); Combined forms of age-related cataract of both eyes 07/26/2024 Travel from Last 3 Months Immunizations Name Administration Dates Next Due Influenza, Injectable, MDCK, preservative free 0 07/20/2015 Influenza, seasonal, injectable, preservative fr ee 02/14/2024 Pfizer Covid-19 Vaccine 12+ 02/14/2024 Tdap 04/04/2016 Zoster, Recombinant 11/21/2022 Family History Medical History Relation Name Comments Breast cancer Neg Hx Colon cancer Neg Hx Ovarian cancer Neg Hx Social History Tobacco Use Types Packs/Day Years Used Date Smoking Tobacco: Never Passive Smoke Exposure: Never Smokeless Tobacco: Never Tobacco Cessation:Counseling Given: Not Answered Alcohol Use Standard Drinks/Week Comments Never 0 [...] not to disclose 2021 10:15 AM EDT Last Filed Vital Signs Vital Sign Reading [...] Mass Index 29.29 09/17/2024 9:43 AM EDT Plan of Treatment Upcoming Encounters Date Type Department Care Team (Late st Contact Info) Description 11/11/2024 11:00 AM EDT Office Visit [facility] [address] [place] [address] Trisha Berg MD [address] [place] [address] Health Maintenance Due Date Last Done Comments CT Colonography 1965 Colonoscopy 1966 Colorectal Cancer Screening 1965 FIT DNA/Cologuard 1966 FIT 1965 FOBT 1966 Sigmoidoscopy 1966 Hepatitis B Vaccines (1 of 3 - 19+ 3-dose series) 1985 Pap Smear 1987 Pneumococcal Vaccine: 50+ Years (1 of 1 - PCV) 01/10/2016 Dental Oral Exam 01/05/2023 07/07/2022 Zoster Vaccines (2 of 2) 01/16/2023 11/21/2022 Dental Prophylaxis 03/03/2023 08/31/2022 Dental X-Ray: Bitewings 07/08/2023 07/07/2022 Cervical Cancer Screening 02/08/2024 HPV/Cotest 02/08/2024 02/07/2019 Mammogram 09/19/2024 09/20/2023, 08/21, 09/14/2022, Additional history exists Alcohol/Substance Use Screening 02/13/2025 02/14/2024 Depression Screening 02/13/2025 02/14/2024, 02/14/20 Dental X-Ray: Full Mouth 07/08/2025 07/07/2022 SDOH Screening 08/05/2025 08/05/2024 Tobacco Screening 09/17/2025 09/17/2024 DTaP/Tdap/Td Vaccines (2 - Td or Tdap) 04/04/2026 04/04/2016 Lipid Panel 02/14/2029 02/15/2024, 11/19, 01/19/2021 RSV Patients and Patients Aged 60 years or older (1 - 1-dose 75+ series) 2041 COVID-19 Vaccine Completed 02/14/2024, 12/2021, 09/25/2020 Influenza Vaccine Completed 02/14/2024, 07/20/2015 HIV Screening Completed 02/15/2024 Hepatitis C Screening Completed 02/15/2024 HIB Vaccines Aged Out No longer eligi ble based on patient's age to complete this topic HPV Vaccines Aged Out No longer eligi ble based on patient's age to complete this topic Hepatitis A Vaccines Aged Out No long er eligible based on patient's age to complete this topic IPV Vaccines Aged Out No longer eligi ble based on patient's age to complete this topic Meningococcal Vaccine Aged Out No trey salome eligible based on patient's age to complete this topic RSV under 20 months Aged Out No longe r eligible based on patient's age to complete this topic Rotavirus Vaccines Aged Out No longer eligible based on patient's age to complete this topic Procedures Procedure Name Priority Date/Time Associated Diagnosis Comments HEPATITIS C VIRAL RNA, QUANTITATIVE, REAL-TIME PCR Routine 02/15/2024 9:10 AM EDT Encounter for preventive health examination HIV 1/2 ANTIGEN/ANTIBODY, FOURTH GENERATION W/RFL Routine 02/15/2024 9:10 AM EDT Encounter for preventive health examination LIPID PANEL WITH REFLEX TO DIRECT LDL Routine 02/15/2024 9:10 AM EDT Encounter for preventive health examination BI MAMMOGRAM SCREENING TOMOSYNTHESIS BILATERAL Routine 09/20/2023 10:25 AM EDT PROPHYLAXIS - ADULT Routine 08/31/2022 1 0:00 AM EDT Periodontal disease Dental calculus INTRAORAL - COMPLETE SERIES OF RADIOGRAPHIC IMAGES Routine 07/07/2022 10:00 AM EST COMPREHENSIVE ORAL EVALUATION - NEW OR ESTABLISHED PATIENT Routine 07/07/2022 10:00 AM EST Dental caries on smooth surface limited to enamel ZZZ HISTORICAL HPV MRNA E6/E7 Routine 02/07/2019 10:33 AM EDT from Last 3 Months or Most Recently Relevant to Health Maintenance Results * (ABNORMAL) Lipid Panel with Reflex to Direct LDL (02/15/2024 9:10 AM EDT) Triglycerides 136 <150 mg/dL [facility] Comment:Desirable Triglyceri de: less than 150 mg/dLBorderline High Triglyceride 150-199 mg/dLHigh Triglyceride: 200-499 mg/dLVery High Triglyceride: greater than or equal to 5OO mg/dL Cholesterol 218(H) <200 mg/dL [facility] Comment:Desirable Cholestero l: less than 200 mg/dLBorderline High Cholesterol: 200-239 mg/dLHigh Cholesterol: greater than 239 mg/dL LDL Cholesterol Calculated 144(H) <100 mg/dL [facility] Comment:Desirable LDL: less than 100 mg/dLNear Optimal/Above Optimal LDL: 110- 129 mg/dLBorderline High LDL: 130-159 mg/dLHigh LDL: 160-189 mg/dLVery High LDL: greater than or equal to 190 mg/dL HDL Cholesterol 47 >40 mg/dL [facility] Comment:Desirable HDL: great er than 40 mg/dL Note: This HDL assay may give artificially low results in patients with liver disease. Blood 02/15/2024 9:10 AM EDT 02/15/2024 11:51 AM EDT Trisha Norton MD LAB BLOOD ORDERABLES Final Result Performing Organization Address [facility] de Phone Number [facility] [address] [place] [address] [phone] * Hepatitis C Viral RNA, Quantitative, Real-Time PCR (02/15/2024 9:10 AM EDT) Hepatitis C Viral Load <15 NOT DETECTED NOT DETECTED IU/mL [facility] HCV Log PCR <1.18 NOT DETECTED NOT DETECTED Log IU/mL [facility] Comment:For additional infor shan, please refer tohttp://education.Shopitize/faq/POU74f5(This link is being provided for informational/educational purposes only.)THIS TEST WAS PERFORMED AT:[employer] [place] [phone] CADE MD Blood 02/15/2024 9:10 AM EDT 02/15/2024 11:51 AM EDT us Trisha Norton MD LAB BLOOD ORDERABLES Final Result Performing Organization Address [facility] Co de Phone Number [facility] [address] [place] [address] [phone] * HIV-1/2 Antigen and Antibodies, Fourth Generation, with Reflexes (02/15/2024 9:10 AM EDT) HIV AB/AG Nonreactive Nonreactive [facility] Comment:HIV-1 p24 Ag and/or HIV-1/HIV-2 Ab not detected.A test result that is nonreactive does not exclude thepossibility of exposure to or infection with HIV-1 and/orHIV-2. Nonreactive results in this assay for individualswith prior exposure to HIV-1 and/or HIV-2 may be due toantigen and antibody levels that are below the limit ofdetection of this assay.[employer] HIV Ag/Ab Combo assay result andsupplemental assay results should be interpreted inconjunction with the patient's clinical presentation,history and other laboratory results. If the results areinconsistent with clinical evidence, additional testing issuggested to confirm the result. Blood Venous blood specimen / Unknown 02/15/2024 9:10 AM EDT 02/15/2024 11:51 AM EDT us Trisha Norton MD LAB BLOOD ORDERABLES Final Result [facility] [address] [place] [address] [phone] * BI Mammogram Screening Tomosynthesis Bilateral (09/20/2023 10:25 AM EDT) Anatomical Region Laterality Modality Breast Bilateral Mammography 09/20/2023 10:2 5 AM EDT Narrative 10/09/2023 1:48 PM EDT ? [facility] ? [address] ?[place] [address] ? Mammography Report ? Signed ? Patient: Aguirre,Arely ?MR#: [id number] ? : 1965 ?Acct:[id number] ? Age/Sex: 58 / F ?ADM Date: 05//24 ? Loc: HO.MAMMO ? Attending Dr: Trisha Norton MD ? Ordering Physician: Trisha Begr MD ?Results: ?? 2Benign Findings ? Date of Service: 09/20/23 ?Follow Up: 1 Year From Orig ?? inal Mammogram ? Procedure(s): MM tomosynthesis screening BI ?? Accession Number(s): [id number] ? cc: Trisha Berg MD ? EXAMINATION: ?? MM SCREENING DIGITAL BREAST TOMOSYNTHESIS, BILATERAL ? CLINICAL INFORMATION: ? Screening. Asymptomatic. ? COMPARISON: ?? Mammography: 09/14/2022, 09/08/2021, 09/03/2020, 09/21/2018, 09/11/2017 ? TECHNIQUE: ?? Digital breast tomosynthesis is performed in both the craniocaudal and ?? mediolateral oblique views along with computer-aided detection (CAD). ?? Synthesized 2D images are generated from the tomosynthesis. ? FINDINGS: ?? There are scattered areas of fibroglandular density (ACR BI-RADS breast ?? composition Category b). ? Intramammary node again noted upper outer right breast middle one ?? third. There are a few benign calcifications scattered posterior medial ?? breast. There are no suspicious masses, suspicious grouped ?? calcifications, or areas of architectural distortion in either breast. ?? The parenchymal pattern is stable from prior exams. ??No skin or ?? axillary abnormalities. ? MM/MM tomosynthesis screening BI ?? IMPRESSION: ?? No mammographic evidence of malignancy. No significant change. ? ASSESSMENT: ? BI-RADS BI-RADS 2 - Benign Findings ? RECOMMENDATION: ?? Routine annual mammography screening. ? 1 year F/U ? This examination should not preclude the clinical evaluation of a ?? suspicious palpable abnormality. ? This patient's information was entered into a reminder system with a ?? target due date for their next mammogram. ? Dictated By: ?Roberto Whittington MD ? Signed By: ?<Electronically signed by Roberto Whittington MD in OV> ?05 1344 ? DD/ 1025 ? TD/TT: ? Drying Machine Operator: ? Procedure Note Donkathyv[facility]ctorsuleimanter, Image - 10/09/2023 [facility] [address] [place] [address] Mammography Report Signed Patient: Arely AguirreMR#: [id number] : 1965Acct:[id number] Age/Sex: 58 / FADM Date: 09/20/23 Loc: HO.MAMMO Attending Dr: Trisha Norton MD Ordering Physician: Trisha Berg MDResults: 2Benign Findings Date of Service: 09/20/23Follow Up: 1 Year From Orig inal Mammogram Procedure(s): MM tomosynthesis screening BI Accession Number(s): [id number] cc: Trisha Berg MD EXAMINATION: MM SCREENING DIGITAL BREAST TOMOSYNTHESIS, BILATERAL CLINICAL INFORMATION: Screening. Asymptomatic. COMPARISON: Mammography: 09/14/2022, 09/08/2021, 09/03/2020, 09/21/2018, 09/11/2017 TECHNIQUE: Digital breast tomosynthesis is performed in both the craniocaudal and mediolateral oblique views along with computer-aided detection (CAD). Synthesized 2D images are generated from the tomosynthesis. FINDINGS: There are scattered areas of fibroglandular density (ACR BI-RADS breast composition Category b). Intramammary node again noted upper outer right breast middle one third. There are a few benign calcifications scattered posterior medial breast. There are no suspicious masses, suspicious grouped calcifications, or areas of architectural distortion in either breast. The parenchymal pattern is stable from prior exams. No skin or axillary abnormalities. MM/MM tomosynthesis screening BI IMPRESSION: No mammographic evidence of malignancy. No significant change. ASSESSMENT: BI-RADS BI-RADS 2 - Benign Findings RECOMMENDATION: Routine annual mammography screening. 1 year F/U This examination should not preclude the clinical evaluation of a suspicious palpable abnormality. This patient's information was entered into a reminder system with a target due date for their next mammogram. Dictated By: Roberto Whittington MD Signed By: <Electronically signed by Roberto Whittington MD in OV> 10/09/23 1344 DD/ 1025 TD/TT: Drying Machine Operator: Trisha Norton MD IMG BI PROCEDURES Fin al Result * HPV mRNA E6/E7 (02/07/2019 10:33 AM EDT) HPV mRNA E6/E7 Not Detected NOT DETECTED [facility] Comment: This test was performed using the APTIMA(R) HPV Assay ([employer] This assay detects E6/E7 viral messenger RNA (mRNA) from 14 high-risk HPV types (16,18,31,33,35,39,45,51, 52,56,58,59,66,68). For additional information please refer to: http://education.digiSchool.LOAG/faq/BPX261v3 (This link is being provided for informational/ educational purposes only.) The analytical performance characteristics of this assay have been determined by [facility] [place], [place]. The modifications have not been cleared or approved by the FDA. This assay has been validated pursuant to the CLIA regulations and is used for clinical purposes. Test Performed by [facility] [place], [address] [place] [address] Chaz Newberry M.D., Ph.D., Director of Laboratories , CLIA [id number] Please note: ??Effective 02/01/2016, HPV testing will be performed using [employer]'s APTIMA test which targets mRNA. Detecting mRNA instead of DNA, as in older methods, offers significant improvements in specificity. 02/07/2019 10:3 3 AM EDT Trisha Norton MD HISTORICAL/NON ORDERA BLE LABS Final Result [facility] [address] from Last 3 Months or Most Recently Relevant to Health Maintenance Insurance [facility] C3 DENTAL-[facility] MEDICAID STAND ADULT Care Teams Crew Car Driver Relationship Specialty Start Date End Date Trisha Berg MD [address] [place] [address] [place] [address] PCP - General Family Medicine 02/07/18
--- OUTSIDE RECORDS SUMMARY | 2024-09-17 18:31 | XMS_ITS | Encounter Summary ---
Author Organization [employer] Address [address] [facility] 7t [place] [address] Care Team Providers Care Will Call Clerk Name Role Phone Trisha Berg MD Primary Care Provide r Encounter Details Date Type Department Care Team (Late Contact Info) Description 09/23/2022 Abstract [facility] [address] [place] [address] Jade, Autumn [address] [place] [address] Social History Tobacco Use Types Packs/Day Years [...] suspected to have Coronavirus/COVID-19? No / Unsure 09/15/2022 9:02 AM EDT documented as of this encounter Plan of Treatment Upcoming Encounters Date Type Department Care Team (Late st Contact Info) Description 11/11/2024 11:00 AM EDT Office Visit [facility] [address] [place] [address] Trisha Berg MD [address] [place] [address] documented as of this encounter Visit Diagnoses Not on filedocumented in this encounter Care Teams Will Call Clerk Relationship Specialty Start Date End Date Trisha Berg MD [address] [place] [phone] PCP - General Family Medicine 02/07/18 documented as of this encounter
[2024-09-20 13:35] LABS: HPV Genotype 16 Negative (Negative); HPV Genotype 18 Negative (Negative); HPV High Risk Negative (Negative)
== END 2024-09-17 16:26 | disposition home or self-care (01) ==
LOC: HO.HHCLNP 16:25
PROVIDERS: Visit Provider Advanced Practice Midwife
DX: Z12.4 Encounter for screening for malignant neoplasm of cervix (principal); Z11.51 Encounter for screening for human papillomavirus (HPV)
CPT/HCPCS: 87626; 88175

== ENCOUNTER 2024-09-25 09:36 | Outpatient (REF) | payer MEDICAID, SELFPAY ==
--- OUTSIDE RECORDS SUMMARY | 2024-09-25 10:28 | XMS_ITS | Encounter Summary ---
Author Organization [employer] Address [address] [facility] [address] [place] [address] Care Team Providers Care Professional Fee Coder Name Role Phone Trisha Berg MD Primary Care Provide r Reason for Visit * Reason Onset Date Comments Results 09/20/2024 Encounter Details Date Type Department Care Team ([facility] st Contact Info) Description 09/20/2024 Telephone [facility] [address] [place], [place] [phone] Trisha Berg MD [address] [place], [place] [phone] Results Social History Tobacco Use Types Packs/Day Years [...] AM EDT documented as of this encounter Miscellaneous Notes * Telephone Encounter - Cristiane Martinez MA - 09/20/2024 1:32 PM EDT T/C-Afternoon Babysitter informed Patient Nish. Wanted to let her know everything ca,e out normal. Patient was pleased. * Telephone Encounter - Cristiane Martinez MA - 09/20/2024 1:31 PM EDT ----- Message from Radha Villanueva sent at 09/20/2024 11:10 AM EDT ----- Please let Arely know her pap was normal, HPV negative, which is good news. Repeat 5y. Thanks! documented in this encounter Plan of Treatment Upcoming Encounters Date Type Department Care Team (Late st Contact Info) Description 11/11/2024 11:00 AM EDT Office Visit [facility] [address] [place], [place] [phone] Trisha Berg MD [address] [place] [address] documented as of this encounter Visit Diagnoses Not on filedocumented in this encounter Additional Health Concerns Assessment Noted Time PHQ-9 Depression Total Score: 8 02/14/20 24 10:56 AM EDT documented as of this encounter Care Teams Professional Fee Coder Relationship Specialty Start Date End Date Trisha Berg MD [address] [place] [address] PCP - General Family Medicine 02/07/18 documented as of this encounter
--- OUTSIDE RECORDS SUMMARY | 2024-09-25 10:29 | XMS_ITS | Encounter Summary ---
Author Organization [employer] Address [address] 7t [place] [address] Care Team Providers Care Landscape And Yardwork Laborer Name Role Phone Trisha Berg MD Primary Care Provide r Encounter Details Date Type Department Care Team (Late Contact Info) Description 09/09/2022 Abstract [facility] [address] [place] [address] JadeAutumn [address] [place] [address] Social History Tobacco Use Types Packs/Day Years [...] Encounters Date Type Department Care Team (Late Contact Info) Description 11/11/2024 11:00 AM EDT Office Visit [facility] [address] [place] [address] Trisha Berg MD [address] [place] [address] documented as of this encounter Visit Diagnoses Not on filedocumented in this encounter Care Teams Landscape And Yardwork Laborer Relationship Specialty Start Date End Date Trisha Berg MD [address] [place] [phone] PCP - General Family Medicine 02/07/18 documented as of this encounter
--- OUTSIDE RECORDS SUMMARY | 2024-09-25 10:29 | XMS_ITS | Encounter Summary ---
Author Organization [employer] Address [address] 7[address] [place] [address] Care Team Providers Care Paleology Professor Name Role Phone Trisha Berg MD Primary Care Provide r Encounter Details Date Type Department Care Team (Late Contact Info) Description 09/23/2022 Abstract [facility] [address] [place] [address] JadeAutumn [address] [place] [address] Social History Tobacco Use Types Packs/Day Years [...] [facility] [address] [place] [address] Trisha Berg MD [address] [place] [address] documented as of this encounter Visit Diagnoses Not on filedocumented in this encounter Care Teams Paleology Professor Relationship Specialty Start Date End Date Trisha Berg MD [address] [place] [phone] PCP - General Family Medicine 02/07/18 documented as of this encounter
--- OUTSIDE RECORDS SUMMARY | 2024-09-25 10:29 | XMS_ITS | Clinical Summary ---
Author Organization [employer] Address [address] [facility] 7t [place] [address] Care Team Providers Care Entry Level Manager Name Role Phone Trisha Berg MD Primary [...] Encounters Date Type Department Care Team Description 09/20/2024 Telephone [facility] [address] [facility] [place] [address] Trisha Berg MD Results 09/17/2024 9:30 AM EDT Procedure Visit [facility] [address] [place] [address] Serafin Morton CNM Cervical cancer screening (Primary Dx) 09/17/2024 Travel 09/11/2024 11:30 AM EDT Clinical Support [facility] [place] [address], MICHAEL Temporary high blood pressure [R03.0] 09/11/2024 Refill [facility] [place] [address] Trisha Berg MD 09/11/2024 Travel 08/30/2024 9:45 AM EDT Office Visit [facility] [address] [place] [phone] Sharita Narayanan, MANUEL Presbyopia (Primary Dx) 08/28/2024 9:30 AM EDT Clinical Support [facility] [place] [address] Dianelys Tucker, MICHAEL Temporary high blood pressure 08/28/2024 Telephone [facility] [place] [address] Trisha Berg MD Care Coordination; Appointment Request 08/28/2024 Refill [facility] [address] [place] [address] Trisha Berg MD 08/28/2024 Travel 08/14/2024 Telephone [facility] [place] [address] Trisha Berg MD MAMMO ORDER 08/13/2024 9:00 AM EDT Office Visit [address] [place] [address] [address] Trisha Berg MD Encounter for screening mammogram for malignant neoplasm of breast (Primary Dx); Stress incontinence of urine; 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); Cleft palate; Temporary high blood pressure; Dietary counseling; Exercise counseling 08/13/2024 Travel 08/12/2024 Telephone [facility] [address] [place] [address] Trisha Berg MD Chart Prep 08/05/2024 Patient Outreach [facility] [address] [place] [address] Trisha Berg MD Pre-visit Planning (SDOH screening negative and tobacco screening negative) 08/02/2024 Population Health Risk Score [facility] () Department [address] [place] [phone] Provider, Population Health Generic 07/26/2024 10:30 AM EST Office Visit [facility] [address] [place] [address] Tarkilo, Helga, OD Presbyopia (Primary Dx); Combined forms of [...] Description 11/11/2024 11:00 AM EDT Office Visit [facility] [address] [place] [address] Trisha Berg MD [address] [place] [address] Health Maintenance Due Date Last Done Comments CT Colonography 1965 Colonoscopy 1966 Colorectal Cancer Screening 1965 FIT DNA/Cologuard 1966 FIT 1966 FOBT 1965 Sigmoidoscopy 1966 Hepatitis B Vaccines (1 of 3 - 19+ 3-dose series) 1985 Pneumococcal Vaccine: 50+ Years (1 of 1 - PCV) 01/10/2016 Dental Oral Exam 01/05/2023 07/07/2022 Zoster Vaccines (2 of 2) 01/16/2023 11/21/2022 Dental Prophylaxis 03/03/2023 08/31/2022 Dental X-Ray: Bitewings 07/08/2023 07/07/2022 Mammogram 09/19/2024 09/20/2023, 04/10/2022, 09/14/2022, Additional history exists Alcohol/Substance Use Screening 02/13/2025 02/14/2024 Depression Screening 02/13/2025 02/14/2024, 02/14/20 Dental X-Ray: Full Mouth 07/08/2025 07/07/2022 SDOH Screening 08/05/2025 08/05/2024 Tobacco Screening 09/17/2025 09/17/2024 DTaP/Tdap/Td Vaccines (2 - Td or Tdap) 04/04/2026 04/04/2016 Lipid Panel 02/14/2029 02/15/2024, 0705/2022, 01/19/2021 Cervical Cancer Screening 09/17/2029 HPV/Cotest 09/17/2029 09/17/2024, 02/07/2019 Pap Smear 09/17/2029 09/17/2024 RSV Patients and Patients Aged 60 years [...] Procedure Name Priority Date/Time Associated Diagnosis Comments PAP SMEAR Routine 09/17/2024 10:04 AM EDT Cervical cancer screening HPV DNA, LOW/HIGH RISK Routine 10:04 AM EDT HEPATITIS C VIRAL RNA, QUANTITATIVE, REAL-TIME PCR [...] caries on smooth surface limited to enamel from Last 3 Months or Most Recently Relevant to Health Maintenance Results * HPV DNA, Low/High Risk (09/17/2024 10:04 AM EDT) HPV High Risk Negative Negative [facility] HPV Genotype 16 Negative Negative [facility] HPV Genotype 18 Negative Negative [facility] Comment:HPV testing performe d at [facility] (CLIA#[id number]), [address] [place] [address].Testing for HPV was performed using the Ursula LUCIO 6800system. The presence of HPV in the female genital tract isassociated with a number of diseases, including cervicalcarcinoma. The HPV DNA high risk pool tests for HPV 31, 33,35, 39, 45, 51, 52, 56, 58, 59, 66 and 68. The testing forHPV 16 and 18 genotypes has also been performed. A positiveresult indicates detection of nucleic acid sequences fromone or more subtypes, whereas a negative result indicatessuch sequences were not detected. 09/17/2024 10:0 4 AM EDT 09/18/2024 5:50 AM EDT us Serafin Morton [facility] BLOOD ORDERABLES Kristel weinberg Result [facility] [address] [place] [phone] * Pap Smear (09/17/2024 10:04 AM EDT) Swab Cervix uteri structure / Unknown 09/17/2024 10:04 AM EDT 09/18/2024 5:50 AM EDT Narrative [facility] - 09/20/2024 9:56 AM EDT ----- ------- Name: Arely Aguirre ? Age/Sex: 59/F ? : 1965 Unit#: [id number] ?? Attend Dr: SERAFIN MORTON CNM ?Re09/17/24 ?Status: DEP REF ? Location: HO.HHCLNP ? Disch: ? ----- ------- SPEC : [id number] ? RECD: 09/18/24 ? STATUS: ??SOUT ? REQ NUM: [id number] ? CANDELARIA: 09/17/24-1003 ? SUBM DR: SERAFIN MORTON CNM ? ENTERED: ??09/18/240558 ?SP TYPE: Pap Smr ?OTHR DR: ? ORDERED: ??Pap Smear ? Interpretation ?? Satisfactory for evaluation. ?? Negative for intraepithelial lesion or malignancy. ?? No endocervical cells seen. ?? Coccobacilli consistent with shift in vaginal christiano. ? HPV High Risk: ??Negative ? HPV Genotyping 16: ??Negative ?? HPV Genotyping 18: ??Negative ?Clinical Information LMP:Unknown date Previous PAP test:2018 ? Material Received ?? ThinPrep-Cervical ----- ------- Signed (signature on file) MORENITA Dia (ASCP) 09/20/24 0956 ? ----- ------- ? END OF REPORT ? us Serafin Morton [facility] CYTOLOGY ORDERABLES F inal Result [facility] [address] [place] [phone] * (ABNORMAL) Lipid Panel with Reflex to Direct LDL (02/15/2024 9:10 AM EDT) Triglycerides 136 <150 mg/dL [facility] Comment:Desirable Triglyceri de: less than 150 mg/dLBorderline High Triglyceride 150-199 mg/dLHigh Triglyceride: 200-499 mg/dLVery High Triglyceride: greater than or equal to 5OO mg/dL Cholesterol 218(H) <200 mg/dL [facility] Comment:Desirable Cholestero l: less than 200 mg/dLBorderline High Cholesterol: 200-239 mg/dLHigh Cholesterol: greater than 239 mg/dL LDL Cholesterol Calculated 144(H) <100 mg/dL [facility] Comment:Desirable LDL: less than 100 mg/dLNear Optimal/Above Optimal LDL: 110- 129 mg/dLBorderline High LDL: 130-159 mg/dLHigh LDL: 160-189 mg/dLVery High LDL: greater than or equal to 190 mg/dL HDL Cholesterol 47 >40 mg/dL [facility] Comment:Desirable HDL: great er than 40 mg/dL Note: This HDL assay may give artificially low results in patients with liver disease. Blood 02/15/2024 9:10 AM EDT 02/15/2024 11:51 AM EDT Trisha Norton MD LAB BLOOD ORDERABLES Final Result [facility] [address] [place] [phone] * Hepatitis C Viral RNA, Quantitative, Real-Time PCR (02/15/2024 9:10 AM EDT) Hepatitis C Viral Load <15 NOT DETECTED NOT DETECTED IU/mL [facility] HCV Log PCR <1.18 NOT DETECTED NOT DETECTED Log IU/mL [facility] Comment:For additional infor mation, please refer [email or web address](This link is being provided for informational/educational purposes only.)THIS TEST WAS PERFORMED AT:[facility] [place] [phone] CADE MD Blood 02/15/2024 9:10 AM EDT 02/15/2024 11:51 AM EDT us Trisha Norton MD LAB BLOOD ORDERABLES Final Result Performing Organization Address [facility] Co de Phone Number [facility] [address] [place] [phone] * HIV-1/2 Antigen and Antibodies, Fourth Generation, with Reflexes (02/15/2024 9:10 AM EDT) HIV AB/AG Nonreactive Nonreactive [facility] Comment:HIV-1 p24 Ag and/or HIV-1/HIV-2 Ab not detected.A test result that is nonreactive does not exclude thepossibility of exposure to or infection with HIV-1 and/orHIV-2. Nonreactive results in this assay for individualswith prior exposure to HIV-1 and/or HIV-2 may be due toantigen and antibody levels that are below the limit ofdetection of this assay.The [employer] HIV Ag/Ab Combo assay result andsupplemental assay results should be interpreted inconjunction with the patient's clinical presentation,history and other laboratory results. If the results areinconsistent with clinical evidence, additional testing issuggested to confirm the result. Blood Venous blood specimen / Unknown 02/15/2024 9:10 AM EDT 02/15/2024 11:51 AM EDT us Trisha Norton MD LAB BLOOD ORDERABLES Final Result Performing Organization Address [facility] Co de Phone Number [facility] [address] [place] [phone] * BI Mammogram Screening Tomosynthesis Bilateral (09/20/2023 10:25 AM EDT) Anatomical Region Laterality Modality Breast Bilateral Mammography 09/20/2023 10:2 5 AM EDT Narrative 10/09/2023 1:48 PM EDT ? [place] [facility] ? [address] ?[place] [address] ? Mammography Report ? Signed ? Patient: Aguirre,Arely ?MR#: [id number] ? : 1965 ?Acct:[id number] ? Age/Sex: 58 / F ?ADM Date: 05/01/24 ? Loc: HO.MAMMO ? Attending Dr: Trisha Norton MD ? Ordering Physician: Trisha Berg MD ?Results: ?? 2Benign Findings ? Date of Service: 09/20/23 ?Follow Up: 1 Year From Orig ?? inal Mammogram ? Procedure(s): MM tomosynthesis screening BI ?? Accession Number(s): [id number] ? cc: Trisha Berg MD ? EXAMINATION: [...] signed by Roberto Whittington MD in OV> ?10/09/23 1344 ? DD/ 1025 ? TD/TT: ? Hourly Manager: ? Procedure Note Juan José, Bautista - 10/09/2023 [facility] [address] [place], [place] [address] Mammography Report Signed Patient: Willie Aguirre#: [id number] : 1965Acct:[id number] Age/Sex: 58 / FADM Date: 09/20/23 Loc: HO.MAMMO Attending Dr: Trisha Norton MD Ordering Physician: Trisha Berg MDResults: 2Benign Findings Date of Service: 09/20/23Follow Up: 1 Year From Orig inal Mammogram Procedure(s): MM tomosynthesis screening BI Accession Number(s): [id number] cc: Trisha Berg MD EXAMINATION: MM SCREENING [...] in OV> 10/09/23 1344 DD/ 1025 TD/TT: Hourly Manager: Trisha Norton MD IMG BI PROCEDURES Fin al Result from Last 3 Months or Most Recently Relevant to Health Maintenance Insurance [facility] C3 [place] [id number] Care Teams Entry Level Manager Relationship Specialty Start Date End Date Trisha Berg MD [address] [place] [address] [place] [address] PCP - General Family Medicine 02/07/18
== END 2024-09-25 09:37 | disposition home or self-care (01) ==
LOC: HO.MAMMO 09:36
PROVIDERS: PCP Internal Medicine; Visit Provider Internal Medicine
DX: Z12.31 Encounter for screening mammogram for malignant neoplasm of breast (principal)
CPT/HCPCS: 77063; 77067

== ENCOUNTER → 2024-09-25 10:00 | Outpatient (BNV) | payer MEDICAID, SELFPAY | PROVIDERS: PCP Internal Medicine; Visit Provider Internal Medicine | DX: Z12.31 Encounter for screening mammogram for malignant neoplasm of breast (principal) | CPT/HCPCS: 77063; 77067 ==

== ENCOUNTER 2025-04-09 10:13 | Outpatient (AMB) | payer MEDICAID, SELFPAY ==
--- NOTE | 2025-04-09 10:27 | A.OFFVIS_ITS ---
Intake Visit Reasons: 6 month f/u Allergies No Known Allergies (No Known Allergies*) Allergy (Verified 04/09/25 10:34) Medication List - Last Reconciled 04/09/25 by Sena Gunn CNP aspirin 81 mg PO DAILY atorvastatin 10 mg PO QAM gabapentin 300 mg PO TID lisinopril 40 mg PO DAILY omeprazole 20 mg PO QAM tramadol 50 mg PO Q8H PRN 30 days HPI Comments Details: She was doing okay. No new stroke-like or TIA-like?symptoms. No new or increased weakness. She was walking with cane,?no falls. No significant migraines. Pain was okay, using tramadol as needed. Sleep was okay. She had a stroke in July 2015 with acute onset of left hemiplegia while sitting watching TV. She was found to have small vessel disease with history consistent with migraine. She had an MRI of the brain the day before, which showed no acute findings and carotid ultrasound which was normal. She had gone home completely intact and presented with left hemiplegia. She had a mild left facial weakness particularly on eye closure and a subtle droop of the left angle of the mouth. Her left upper extremity was 1 to 2/ 5 with some flaccidity. Left lower extremity was 2 to 3 / 5. Plantar response on the left was extensor with a positive Babinski. [facility] Medical History (Updated 04/09/25 @ 10:33 by Sena Gunn CNP) Cleft palate GERD (gastroesophageal reflux disease) Hypercholesteremia Stroke Social History Alcohol intake: never Review of Systems Const Denies chills, Denies daytime sleepiness, Denies difficulty sleeping, Denies fatigue, Denies fever(s), Denies frequent falls, Reports headache(s), Denies increased appetite, Denies poor appetite, Denies snoring, Denies weakness, Den ies weight gain and Denies weight loss Eyes Denies loss of vision ENT Denies vertigo, Denies dizziness, Reports headache(s) and Denies neck pain Card Denies chest pain at rest, Denies chest pain with activity, Denies syncope, Denies leg edema, Denies palpitations, Denies dyspnea and Denies dyspnea on exertion Resp Denies cough, Denies dyspnea, Denies dyspnea on exertion and Denies snoring GI Denies abdominal pain, Denies constipation, Denies heartburn, Denies diarrhea an d Denies nausea Denies urinary frequency, Denies urinary incontinence and Denies urinary urgency Musc Denies abnormal gait, Denies back pain, Denies myalgias, Denies arthralgias, Denies neck pain, Denies numbness and Denies tingling Neuro Denies abnormal gait, Denies vertigo, Denies dizziness, Denies syncope, Denies frequent falls, Reports headache(s), Denies lack of coordination, Denies loss of vision, Denies memory loss, Denies numbness, Denies Other visual disturbances, Denies restless legs, Denies seizure-like activity, Denies tingling, Denies paresthesias, Denies tremor(s) and Denies weakness Psych Denies anxiety, Denies depression, Denies auditory hallucinations, Denies memory loss and Denies visual hallucinations Endo Denies fatigue and Denies palpitations Physical Exam Const Other: General Appearance:? normal, in no acute distress. Heart:? S1, S2 normal, no murmurs. Lungs:? clear anteriorly and posteriorly. Musculoskeletal:? normal. Extremities:? no edema. Psych:? alert, oriented, cognitive function intact, cooperative with exam. Neuro Other: Abnormal Neurological Findings:?Slightly nasal speech with mild dysarthria from cleft palate. Mild left hemiparesis 5-/5. Slow MELIDA on left. Walks independently without cane, but prefers to use. Mental Status: alert and oriented X 3. Normal attention, orientation, memory, and affect. Cranial Nerves: Pupils are equal, round, and reactive to light. External ocular muscles are intact. Visual maldonado are full, no ptosis. Face is symmetrical, no facial weakness or droop. Facial sensations are normal. Tongue protrudes in midline. Palate elevates symmetrically. Shoulder shrugging is normal Motor Examination: Right side normal muscle tone, bulk and strength. Left hemiparesis as above. DTR 2+. Plantars are flexor on the right and extensor on the left. Sensory Exam: Normal light touch, temperature, pinprick, vibration, and joint- position sensations. Rhomberg sign is absent. Coordination: No ataxia. No titubation. Gait Exam: With cane. Cerebellar Signs: [id number] is okay. Extrapyramidal System: No tremor, rigidity with normal facial expressions. No bradykinesia. No bradyphrenia. Normal arm swing and posture. No propulsion or retropulsion. Speech: As above. Assessment & Plan Assessment & Plan (1) History of stroke with residual deficit: Code(s): I69.30 - Unspecified sequelae of cerebral infarction Category: Medical Plan: Continue gabapentin 300mg 1 capsule three times a day. Continue tramadol 50mg 1 tablet q8h as needed for pain #30 for 30 days. (2) Migraine: Code(s): G43.909 - Migraine, unspecified, not intractable, without status migrainosus Category: Medical Qualifiers: Migraine type: unspecified Status migrainosus presence: without status migrainosus Intractability: not intractable Qualified Code(s): G43.909 - Migraine, unspecified, not intractable, without status migrainosus Plan . Medications: New gabapentin 300 mg PO TID 270 caps 1RF 90 days Coding Level of Care Code Est Pt Level 4 (71685) Diagnoses History of stroke with residual deficit I69.30 Migraine without status migrainosus, not intractable, unspecified migraine type G43.909 Migraine type: unspecified Status migrainosus presence: without status migrainosus Intractability: not intractable
--- OUTSIDE RECORDS SUMMARY | 2025-04-09 19:34 | XMS_ITS | Encounter Summary ---
Author Organization [employer] Address [address] [facility] 7t [place] [address] Care Team Providers Care Psych Coordinator Name Role Phone Trisha Berg MD Primary Care Provide r Encounter Details Date Type Department Care Team (Late st Contact Info) Description 09/09/2022 Abstract [facility] [address] [place] [address] Alex Hansenaris [address] [place] [address] Social History Tobacco Use Types Packs/Day Years [...] as of this encounter Plan of Treatment Not on file documented as of this encounter Visit Diagnoses Not on filedocumented in this encounter Care Teams Psych Coordinator Relationship Specialty Start Date End Date Trisha Berg MD [address] [place] [address] PCP - General Family Medicine 02/07/18 documented as of this encounter
--- OUTSIDE RECORDS SUMMARY | 2025-04-09 19:34 | XMS_ITS | Clinical Summary ---
Author Organization [employer] Address [address] [facility] [address] [place] [address] Care Team Providers Care Web Development Instructor Name Role Phone Trisha Berg MD Primary Care Provide r Allergies No known active allergies Medications gabapentin (Neurontin) 100 MG capsule Take by mouth. Acti ve zoster vaccine-recombin ant adjuvanted (Shingrix) 50 MCG/0.5ML vaccine Inject 0.5 mL into the shoulder, thigh, or buttocks. 2 Active naproxen (Naprosyn) 500 MG tablet Take 1 tablet by mouth every 12 (twelve) hours. 0 Active naloxone (Narcan) 4 mg/0.1 mL nasal spray Administer 0.1 mL into affected nostril(s). 2 Active fluticasone (Flonase) 50 MCG/ACT nasal spray Administer 2 sprays into affected nostril(s) at bed time. 0 Active Arnica liquid cream, ointment or lotion, any strength, for topical application twice daily as needed for muscle pain 7 Active gabapentin (Neurontin) 300 MG capsule Take 300 mg by mouth 3 times daily. 3 Active venlafaxine XR (Effexor XR) 37.5 MG 24 hr capsuleIndicatio ns:Hot flashes due to menopause Take 1 capsule (37.5 mg) by mouth in the morning. Do not crush or chew. 30 capsule 3 Active Blood Pressure Monitor kitIndications:T emporary high blood pressure Use as directed 3x/week 1 kit 3 Active meclizine (Antivert) 25 MG tablet Take 1 tablet (25 mg) by mouth at bedtime. As needed for dizziness 30 tablet 11 3 Active albuterol (Ventolin HFA) 108 (90 Base) MCG/ACT inhaler INHALE 2 PUFFS BY MOUTH EVERY 4 HOURS NEEDED FOR WHEEZING OR SHORTNESS OF BREATH 18 g 3 4 Active lisinopril 40 MG tabletIndication s:Primary hypertension Take 1 tablet (40 mg) by mouth Once per day. 30 tablet 11 5 11/12/19 26 Active atorvastatin (Lipitor) 10 MG tablet TAKE 1 TABLET BY MOUTH EVERY MORNING 90 tablet 1 5 Active Aspirin Low Dose 81 MG EC tablet TAKE 1 TABLET BY MOUTH EVERY DAY 90 tablet 1 04/09/2025 12:25 PM EST 5 Active omeprazole (PriLOSEC) [address] Ward ns:Gastroesophag eal reflux disease without esophagitis TAKE 1 CAPSULE BY MOUTH EVERY DAY BEFORE BREAKFAST. DO NOT BREAK, CRUSH, DISSOLVE OR CHEW. 90 capsule 3 5 Active Active Problems Problem Noted Date Diagnosed Date Primary hypertension 11/11/2024 Assessment & Plan (02/17/2025 10:30 AM EDT): I advise: - Aerobic exercise to reduce BP. Initial goal of 30 min walk 3-5x/week. Increase as tolerated. - low-sodium diet (goal: <2g/day) and heart healthy diet such as DASH to reduce BP and prevent ASCVD. - Home BP monitoring 1-2 x day with goal of <140/90. - Seek immediate medical attention for chest pain, palpitations, SOB, syncope, or sudden changes in mental status. - Do not change or discontinue current prescriptions without first consulting health care provider Assessment & Plan (11/11/2024 3:56 PM EDT): Today blood pressure is still high since last visit I decided to go up on her lisinopril to 40 mg daily I also advised: - Aerobic exercise to reduce BP. Initial goal of 30 min walk 3-5x/week. Increase as tolerated. - low-sodium diet (goal: <2g/day) and heart healthy diet such as DASH to reduce BP and prevent ASCVD. - Home BP monitoring 1-2 x day with goal of <140/90. - Seek immediate medical attention for chest pain, palpitations, SOB, syncope, or sudden changes in mental status. 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 Disturbance in speech [...] de as late effect of cerebrovascular disease (CMS/HCC) 09/27/2016 Assessment & Plan (02/17/2025 10:30 AM EDT): Prescription for evaluation for scooter will be generated RMV document will be filled out for patient Assessment & Plan (08/13/2024 1:34 PM EDT): Patient has been stable, continue with atorvastatin and aspirin Assessment & Plan (02/20/2024 1:14 PM EDT): Prescription for scooter evaluation will be generated today Assessment & Plan (11/21/2022 10:05 AM EDT): Patient needs document to be fill out for RMV platter Encounters Date Type Department Care Team Description 02/17/2025 9:15 AM EDT Office Visit [facility] [address] [place] [address] Trisha Berg MD Encounter for immunization (Primary Dx); Screening for colon cancer; Encounter for preventative adult health care examination; 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); Primary hypertension 02/17/2025 Telephone [facility] [address] [place] [address] Trisha Berg MD DME Scooter 02/17/[address] [address] Trisha Berg MD DME Scooter 02/17/2025 Travel 02/14/[address] [address] Trisha Berg MD Chart Prep 02/12/[address] [address] Trisha Berg MD Gastroesophageal reflux disease without esophagitis 02/10/2025 Patient Outreach [address] [address] Trisha Berg MD Pre-visit Planning (SDOH screening completed on 08/05/2024) 01/07/2025 Telephone [facility] [address] [place] [address] Trisha Berg MD Durable Medical Equipment from Last 3 Months Immunizations Immunization Administration Dates Next Due Influenza, Injectable, MDCK, preservative free 0 07/20/2015 Influenza, seasonal, injectable, preservative fr ee 02/14/2024 Pfizer Covid-19 Vaccine 12+ 02/14/2024 Pneumococcal Conjugate PCV 20 02/17/2025 Tdap 04/04/2016 Zoster, Recombinant 11/21/2022 Family History [...] Sign Reading Time Taken Comments Blood Pressure 136/92 02/17/2025 9:13 AM EDT Pulse 71 02/17/2025 9:13 AM EDT Temperature 36.1 C (97 F) 02/17/2025 9:13 AM EDT Respiratory Rate 17 02/17/2025 9:13 AM EDT Oxygen Saturation 97% 02/17/2025 9:13 AM EDT Inhaled Oxygen Concentration - - Weight 69.2 kg (152 lb 9.6 oz) 02/17/2025 9:13 A M EDT Height 152.4 cm (5') 02/17/2025 9:13 AM EDT Body Mass Index 29.8 02/17/2025 9:13 AM EDT Plan of Treatment Health Maintenance Due Date Last Done Comments CT Colonography 1965 Colonoscopy 1966 Colorectal Cancer Screening 1966 FIT DNA/Cologuard 1966 FIT 1966 FOBT 1966 Sigmoidoscopy 1966 Alcohol/Substance Use Screening 1978 Hepatitis B Vaccines (1 of 3 - 19+ 3-dose series) 1985 Dental Oral Exam 01/05/2023 07/07/2022 Zoster Vaccines (2 of 2) 01/16/2023 11/21/2022 Dental Prophylaxis 03/03/2023 08/31/2022 Dental X-Ray: Bitewings 07/08/2023 07/07/2022 COVID-19 Vaccine ( season) 2025 02/14/2024, 07/27/2021, 09/25/2020 Influenza Vaccine (#1) 2025 02/14/2024, 2015 Depression Screening 02/13/2025 02/14/2024, 02/14/20 Dental X-Ray: Full Mouth 07/08/2025 07/07/2022 SDOH Screening 08/05/2025 08/05/2024 Mammogram 09/25/2025 09/25/2024, 05/05/2023, 09/14/2022, Additional history exists Disability Screening 11/11/2025 11/11/2024 Tobacco Screening 02/17/2026 02/17/2025 DTaP/Tdap/Td Vaccines (2 - Td or Tdap) 04/04/2026 04/04/2016 Lipid Panel 02/14/2029 02/15/2024, 0705/2022, 01/19/2021 Cervical Cancer Screening 09/17/2029 HPV/Cotest 09/17/2029 09/17/2024, 02/07/2019 Pap Smear 09/17/2029 09/17/2024 RSV Patients and Patients Aged 60 years or older (1 - 1-dose 75+ series) 2041 HIV Screening Completed 02/15/2024 Hepatitis C Screening Completed 02/15/2024 Pneumococcal Vaccine: 50+ Years Completed 02/17/2025 HIB Vaccines Aged Out No longer eligi [...] patient's age to complete this topic Meningococcal B Vaccine Aged Out No l onger eligible based on patient's age to complete [...] Procedure Name Priority Date/Time Associated Diagnosis Comments BI MAMMOGRAM SCREENING TOMOSYNTHESIS BILATERAL Routine 09/25/2024 10:00 AM EDT Encounter for screening mammogram for malignant neoplasm of breast HPV DNA, LOW/HIGH RISK Routine 10:04 AM EDT PAP SMEAR Routine 09/17/2024 10:04 AM EDT Cervical cancer screening HEPATITIS C VIRAL RNA, QUANTITATIVE, REAL-TIME PCR Routine 02/15/2024 9:10 AM EDT Encounter for preventive health examination HIV 1/2 ANTIGEN/ANTIBODY, FOURTH GENERATION W/RFL Routine 02/15/2024 9:10 AM EDT Encounter for preventive health examination LIPID PANEL WITH REFLEX TO DIRECT LDL Routine 02/15/2024 9:10 AM EDT Encounter for preventive health examination PROPHYLAXIS - ADULT Routine 08/31/2022 1 0:00 AM EDT Periodontal disease Dental calculus INTRAORAL - COMPLETE SERIES OF RADIOGRAPHIC IMAGES Routine 07/07/2022 10:00 AM EST COMPREHENSIVE ORAL EVALUATION - NEW OR ESTABLISHED PATIENT Routine 07/07/2022 10:00 AM EST Dental caries on smooth surface limited to enamel from Last 3 Months or Most Recently Relevant to Health Maintenance Results * BI Mammogram Screening Tomosynthesis Bilateral (09/25/2024 10:00 AM EDT) Anatomical Region Laterality Modality Breast Bilateral Mammography 09/25/2024 10:0 0 AM EDT Narrative 09/30/2024 3:20 PM EDT [address] [place] [address] Mammography Report Signed Patient: Arely Aguirre MR#: [id number] : 1965 Acct:[id number] Age/Sex: 59 / F ADM Date: 09/25/24 Loc: HO.MAMMO Attending Dr: Trisha Norton MD Ordering Physician: Trisha Berg MD Results: 1Negative Date of Service: 09/25/24 Follow Up: 1 Year From Orig inal Mammogram Procedure(s): MM tomosynthesis screening BI Accession Number(s): [id number] cc: Trisha Berg MD EXAMINATION: MM SCREENING DIGITAL BREAST TOMOSYNTHESIS, BILATERAL CLINICAL INFORMATION: Screening. Asymptomatic. COMPARISON: Mammography: Comparison is made with available priors TECHNIQUE: Digital breast mammography with tomosynthesis is performed in both the craniocaudal and mediolateral oblique views along with computer-aided detection (CAD). FINDINGS: There are scattered areas of fibroglandular density (ACR BI-RADS breast composition Category b). There are no significant masses, abnormal calcifications, or other abnormalities. MM/MM tomosynthesis screening BI IMPRESSION: No mammographic evidence of malignancy. ASSESSMENT: BI-RADS BI-RADS 1 - Negative RECOMMENDATION: Routine annual mammography screening. 1 year F/U This examination should not preclude the clinical evaluation of a suspicious palpable abnormality. This patient's information was entered into a reminder system with a target due date for their next mammogram. Electronically signed by: Chelsie Malagon DO 09/30/2024 03:17 PM EDT Dictated By: Chelsie Malagon DO Signed By: <Electronically signed by Chelsie Malagon DO in OV> 09/30/24 1517 DD/ 1000 TD/TT: 09/25/24 1021 Carriage Setter: Procedure Note Donotuseinterpreter, Image - 09/30/[address] [place] [address] Mammography Report Signed Patient: Arley AguirreMR#: [id number] : 1965Acct:[id number] Age/Sex: 59 / FADM Date: 09/25/24 Loc: HO.MAMMO Attending Dr: Trisha Norton MD Ordering Physician: Trisha Berg MDResults: 1Negative Date of Service: 09/25/24Follow Up: 1 Year From Orig ina Mammogram Procedure(s): MM tomosynthesis screening BI Accession Number(s): [id number] cc: Trisha Berg MD EXAMINATION: MM SCREENING DIGITAL BREAST TOMOSYNTHESIS, BILATERAL CLINICAL INFORMATION: Screening. Asymptomatic. COMPARISON: Mammography: Comparison is made with available priors TECHNIQUE: Digital breast mammography with tomosynthesis is performed in both the craniocaudal and mediolateral oblique views along with computer-aided detection (CAD). FINDINGS: There are scattered areas of fibroglandular density (ACR BI-RADS breast composition Category b). There are no significant masses, abnormal calcifications, or other abnormalities. MM/MM tomosynthesis screening BI IMPRESSION: No mammographic evidence of malignancy. ASSESSMENT: BI-RADS BI-RADS 1 - Negative RECOMMENDATION: Routine annual mammography screening. 1 year F/U This examination should not preclude the clinical evaluation of a suspicious palpable abnormality. This patient's information was entered into a reminder system with a target due date for their next mammogram. Electronically signed by: Chelsie Malagon DO 09/30/2024 03:17 PM EDT Dictated By: Chelsie Malagon DO Signed By: <Electronically signed by Chelsie Malagon DO in OV> 09/30/24 1517 DD/ 1000 TD/TT: 09/25/24 1021 Carriage Setter: Trisha Norton MD IMG BI PROCEDURES Fin al Result * HPV DNA, Low/High Risk (09/17/2024 10:04 AM EDT) HPV High Risk Negative Negative [facility] HPV Genotype 16 Negative Negative [facility] HPV Genotype 18 Negative Negative [facility] Comment:HPV testing performe d at [facility] (CLIA#[id number]), [address] [place] [id number].Testing for HPV was performed using the Ursula [...] 4 AM EDT 09/18/2024 5:50 AM EDT Serafin PARSON LAB BLOOD ORDERABLES Kristel weinberg Result [facility] [address] [place] [phone] * Pap Smear (09/17/2024 10:04 AM EDT) Swab Cervix uteri structure / Unknown 09/17/2024 10:04 AM EDT 09/18/2024 5:50 AM EDT Narrative [facility] - 09/20/2024 9:56 AM EDT ----- ------- Name: AguirreArely Age/Sex: 59/F : 1965 Unit#: [id number] Attend Dr: SERAFIN MORTON Re09/17/24 Status: DEP REF Location: [facility] Disch: ----- ------- SPEC : [id number] RECD: 09/18/24 STATUS: EVELYN MCELROY NUM: [id number] CANDELARIA: 09/17/24-1003 [facility] DR: SERAFIN MORTON [facility] ENTERED: 09/18/24 SP TYPE: Pap Smr OTHR DR: ORDERED: Pap Smear Interpretation Satisfactory for evaluation. Negative for intraepithelial lesion or malignancy. No endocervical cells seen. Coccobacilli consistent with shift in vaginal christiano. HPV High Risk: Negative HPV Genotyping 16: Negative HPV Genotyping 18: Negative Clinical Information LMP:Unknown date Previous PAP test:2019 Material Received ThinPrep-Cervical ----- ------- Signed (signature on file) MORENITA Dia (ASC) 09/20/24 0956 ----- ------- END OF REPORT us Serafin Morton CN LAB CYTOLOGY ORDERABLES F inal Result Performing Organization Address City/[facility]/ZIP Co de Phone Number [facility] [address] [place] [phone] * (ABNORMAL) Lipid Panel with Reflex to Direct LDL (02/15/2024 9:10 AM EDT) Triglycerides 136 <150 mg/dL [facility] Comment:Desirable Triglyceri de: less than 150 mg/dLBorderline High Triglyceride 150-199 mg/dLHigh Triglyceride: 200-499 mg/dLVery High Triglyceride: greater than or equal to 5OO mg/dL Cholesterol 218(H) <200 mg/dL [facility] Comment:Desirable Cholestero l: less than 200 mg/dLBorderline High Cholesterol: 200-239 mg/dLHigh Cholesterol: greater than 239 mg/dL LDL Cholesterol Calculated 144(H) <100 mg/dL [facility] Comment:Desirable LDL: less than 100 mg/dLNear Optimal/Above Optimal LDL: 110- 129 mg/dLBorderline High LDL: 130-159 mg/dLHigh LDL: 160-189 mg/dLVery High LDL: greater than or equal to 190 mg/dL HDL Cholesterol 47 >40 mg/dL [facility] Comment:Desirable HDL: great er than 40 mg/dL Note: This HDL assay may give artificially low results in patients with liver disease. Blood 02/15/2024 9:10 AM EDT 02/15/2024 11:51 AM EDT us Trisha Norton MD LAB BLOOD ORDERABLES Final Result [facility] [address] [place] [phone] [phone] * Hepatitis C Viral RNA, Quantitative, Real-Time PCR (02/15/2024 9:10 AM EDT) Hepatitis C Viral Load <15 NOT DETECTED NOT DETECTED IU/mL [facility] HCV Log PCR <1.18 NOT DETECTED NOT DETECTED Log IU/mL [facility] Comment:For additional infor shan, please refer [email or web address](This link is being provided for informational/educational purposes only.)THIS TEST WAS PERFORMED AT:[facility] [place] [id number] CADE MD Blood 02/15/2024 9:10 AM EDT 02/15/2024 11:51 AM EDT us Trisha Norton MD LAB BLOOD ORDERABLES Final Result Performing Organization Address [facility] Co de Phone Number [facility] [address] [place] [phone] * HIV-1/2 Antigen and Antibodies, Fourth Generation, with Reflexes (02/15/2024 9:10 AM EDT) HIV AB/AG Nonreactive Nonreactive [facility] Comment:HIV-1 p24 Ag and/or HIV-1/HIV-2 Ab not detected.A test result that is nonreactive does not exclude thepossibility of exposure to or infection with HIV-1 and/orHIV-2. Nonreactive results in this assay for individualswith prior exposure to HIV-1 and/or HIV-2 may be due toantigen and antibody levels that are below the limit ofdetection of this assay.The [place] HIV Ag/Ab Combo assay result andsupplemental assay results should be interpreted inconjunction with the patient's clinical presentation,history and other laboratory results. If the results areinconsistent with clinical evidence, additional testing issuggested to confirm the result. Blood Venous blood specimen / Unknown 02/15/2024 9:10 AM EDT 02/15/2024 11:51 AM EDT us Trisha Norton MD LAB BLOOD ORDERABLES Final Result Performing Organization Address City/[facility]/ZIP Co de Phone Number [facility] [address] [place] [address] [place] [phone] from Last 3 Months or Most Recently Relevant to Health Maintenance Insurance [facility] MEDICA[employer] STAND ADULT Care Teams Web Development Instructor Relationship Specialty Start Date End Date Barciona Norton, Yudy, MD [address] [place] [address] PCP - General Family Medicine 02/07/18
--- OUTSIDE RECORDS SUMMARY | 2025-04-09 19:35 | XMS_ITS | Encounter Summary ---
Author Organization [employer] Address [address] [facility] [address] [place] [address] Care Team Providers Care Counseling Aide Name Role Phone Trisha Berg MD Primary Care Provide r Encounter Details Date Type Department Care Team (Late st Contact Info) Description 09/23/2022 Abstract [facility] [address] [place] [address] Alex Hansenaris [address] [place] [address] Social History Tobacco Use Types Packs/Day Years [...] on filedocumented in this encounter Care Teams Counseling Aide Relationship Specialty Start Date End Date Trisha Berg MD [address] [place] [address] PCP - General Family Medicine 02/07/18 documented as of this encounter
== END 2025-04-09 10:51 | disposition home or self-care (01) ==
LOC: HO.HSM 10:14
PROVIDERS: PCP Internal Medicine; Referring Provider Internal Medicine; Visit Provider Registered Nurse
DX: I69.30 Unspecified sequelae of cerebral infarction (principal); G43.909 Migraine, unspecified, not intractable, without status migrainosus
CPT/HCPCS: 99214

== ENCOUNTER → 2025-04-09 10:13 | Outpatient (BNVA) | payer MEDICAID, SELFPAY | PROVIDERS: PCP Internal Medicine; Referring Provider Internal Medicine; Visit Provider Registered Nurse | DX: G43.909 Migraine, unspecified, not intractable, without status migrainosus (principal); I69.30 Unspecified sequelae of cerebral infarction | CPT/HCPCS: 99212 ==